=== PATIENT | female | born 1955 | race Two or more races ===

== ENCOUNTER 2018-04-01 17:07 | Emergency (ER) | payer MEDICAID ==
--- NOTE | 2018-04-01 17:39 | ER Document Report ---
ED Medical Screen (RME) - General Chief Complaint: Back Pain Stated Complaint: BACK PAIN, FLANK PAIN Time Seen by Provider: 04/01/18 17:27 Mode of Arrival: Ambulatory Information source: Patient Notes: Patient presents complaining of bilateral flank pain for the past 3 days. Patient complains of right upper thoracic back pain for the past 2 months. Patient states that the thoracic back pain started to radiate around to the right side of the chest yesterday. Patient complains of cough for the past 3 days. Patient also reports some exertional shortness of breath. Patient denies any fever or urinary symptoms. Patient denies any nausea vomiting or diarrhea. Patient reports history of asthma, kidney stones, hypertension and diabetes I have greeted and performed a rapid initial assessment of this patient. A comprehensive ED assessment and evaluation of the patient, analysis of test results and completion of the medical decision making process will be conducted by additional ED providers. TRAVEL OUTSIDE OF THE [place] IN LAST 30 DAYS: No - Related Data Allergies/Adverse Reactions: ibuprofen Allergy (Verified 01/25/16 16:16) Penicillins Allergy (Verified 01/25/16 16:16) Past Medical History Pulmonary Medical History: Reports: Hx Asthma Endocrine Medical History: Reports: Hx Diabetes Mellitus Type 2 GI Medical History: Reports: Hx Gastroesophageal Reflux Disease Musculoskeltal Medical History: Reports Hx Arthritis - Chronic back pain Psychiatric Medical History: Reports: Hx Anxiety Past Surgical History: Reports: Hx Cholecystectomy, Hx Gynecologic Surgery - Ovarian cyst, Hx Herniorrhaphy, Hx Hysterectomy Physical Exam - Vital signs Vitals: Temp Pulse Resp BP Pulse Ox 98.4 F 97 16 126/70 H 94 04/01/18 17:19 04/01/18 17:19 04/01/18 17:19 04/01/18 17:19 04/01/18 17:19 - Back Back: Tender - Right thoracic back tenderness, CVA tenderness - Bilateral Course - Vital Signs Vital signs: Temp Pulse Resp BP Pulse Ox 98.4 F 97 16 126/70 H 94 04/01/18 17:19 04/01/18 17:19 04/01/18 17:19 04/01/18 17:19 04/01/18 17:19
--- NOTE | 2018-04-01 18:01 | RADIOLOGY REPORT (SQ) ---
EXAM DESCRIPTION: CHEST 2 VIEWS COMPLETED DATE/TIME: 04/01/2018 5:53 pm REASON FOR STUDY: cough, r side cp COMPARISON: 01/25/2016 EXAM PARAMETERS: NUMBER OF VIEWS: two views TECHNIQUE: Digital Frontal and Lateral radiographic views of the chest acquired. RADIATION DOSE: NA LIMITATIONS: none FINDINGS: LUNGS AND PLEURA: No opacities, masses or pneumothorax. No pleural effusion. MEDIASTINUM AND HILAR STRUCTURES: No masses or contour abnormalities. HEART AND VASCULAR STRUCTURES: Heart normal size. No evidence for failure. BONES: No acute findings. HARDWARE: None in the chest. OTHER: No other significant finding. IMPRESSION: NO ACUTE RADIOGRAPHIC FINDING IN THE CHEST. TECHNICAL DOCUMENTATION: JOB ID: [id number] [employer]- All Rights Reserved Reading location - IP/workstation name: [email or web address]
--- NOTE | 2018-04-01 18:24 | RADIOLOGY REPORT (SQ) ---
EXAM DESCRIPTION: U/S ABDOMEN LIMITED W/O DOP COMPLETED DATE/TIME: 04/01/2018 6:14 pm REASON FOR STUDY: flank, r chest pain COMPARISON: None. TECHNIQUE: Dynamic and static grayscale images acquired of the abdomen and recorded on PACS. Additio nal selected color Doppler and spectral images recorded. LIMITATIONS: Body habitus. FINDINGS: PANCREAS: Not seen. LIVER: Hepatomegaly. Increased echogenicity. LIVER VASCULATURE: Normal directional flow of the main portal vein and hepatic veins. GALLBLADDER: Surgically absent. ULTRASOUND-DETECTED TOLBERT'S SIGN: Not applicable. INTRAHEPATIC DUCTS AND COMMON DUCT: CBD and intrahepatic ducts normal caliber. No filling defects. INFERIOR VENA CAVA: Not well seen. AORTA: Not well seen. RIGHT KIDNEY: Normal size, 8.8 cm. Normal echogenicity. No solid or suspicious masses. No hydronephr osis. No calcifications. PERITONEAL AND RIGHT PLEURAL SPACE: No ascites or effusions. OTHER: No other significant findings. IMPRESSION: Hepatomegaly with fatty infiltration of the liver. Limited study. TECHNICAL DOCUMENTATION: JOB ID: [id number] [employer]- All Rights Reserved Reading location - IP/workstation name: [email or web address]
--- NOTE | 2018-04-01 18:24 | ER Document Report ---
ED GI/ - General Chief Complaint: Back Pain Stated Complaint: BACK PAIN, FLANK PAIN Time Seen by Provider: 04/01/18 17:27 Mode of Arrival: Ambulatory Information source: Patient Notes: 62-year-old morbidly obese female presents to ED for complaint of bilateral flank pain low back pain and abdominal pain. She states that the thoracic pain and back pain has been for 2 months but the bilateral flank pain and abdominal pains been for 3-4 days. Patient is alert and oriented respirations regular and unlabored speaking in full sentences. She was seen by Tomer Puente [employer] RE[employer] and a chest x-ray is already been done which is negative. TRAVEL OUTSIDE OF THE [place] IN LAST 30 DAYS: No - HPI Patient complains to provider of: Abdominal pain, Flank pain, Other - back Onset: Other - Back pain for 2 months abdominal pain for 3-4 days Timing/Duration: Gradual, Worse Quality of pain: Cramping, Pressure, Sharp Severity at maximum: Severe Severity in ED: Severe Pain Level: 5 Location: LUQ, LLQ, RUQ, RLQ, Left flank, Right flank Vaginal bleeding (Compared to normal period): None Associated symptoms: Radiates to back, Radiates to shoulder Exacerbated by: Movement, Walking Relieved by: Denies Similar symptoms previously: Yes Recently seen / treated by doctor: No - Related Data Allergies/Adverse Reactions: ibuprofen Allergy (Verified 01/25/16 16:16) Penicillins Allergy (Verified 01/25/16 16:16) Past Medical History - General Information source: Patient - Social History Smoking Status: Never Smoker Cigarette use (# per day): No Chew tobacco use (# tins/day): No Smoking Education Provided: No Frequency of alcohol use: None Drug Abuse: None Lives with: Family Family History: Reviewed & Not Pertinent Patient has suicidal ideation: No Patient has homicidal ideation: No - Past Medical History Cardiac Medical History: Reports: None Pulmonary Medical History: Reports: Hx Asthma EENT Medical History: Reports: None Neurological Medical History: Reports: None Endocrine Medical History: Reports: Hx Diabetes Mellitus Type 2 Renal/ Medical History: Reports: None Malignancy Medical History: Reports: None GI Medical History: Reports: Hx Gastroesophageal Reflux Disease Musculoskeletal Medical History: Reports Hx Arthritis - Chronic back pain Skin Medical History: Reports None Psychiatric Medical History: Reports: Hx Anxiety Traumatic Medical History: Reports: None Infectious Medical History: Reports: None Past Surgical History: Reports: Hx Cholecystectomy, Hx Gynecologic Surgery - Ovarian cyst, Hx Herniorrhaphy, Hx Hysterectomy - Immunizations Immunizations up to date: Yes Hx Diphtheria, Pertussis, Tetanus Vaccination: Yes Review of Systems - Review of Systems Constitutional: No symptoms reported EENT: No symptoms reported Cardiovascular: No symptoms reported Respiratory: No symptoms reported Gastrointestinal: Abdominal pain Genitourinary: Flank pain Female Genitourinary: No symptoms reported Musculoskeletal: No symptoms reported Skin: No symptoms reported Hematologic/Lymphatic: No symptoms reported Neurological/Psychological: No symptoms reported Physical Exam - Vital signs Vitals: Temp Pulse Resp BP Pulse Ox 98.4 F 97 16 126/70 H 94 04/01/18 17:19 04/01/18 17:19 04/01/18 17:19 04/01/18 17:19 04/01/18 17:19 Interpretation: Normal - General General appearance: Appears well, Alert - HEENT Head: Normocephalic, Atraumatic Eyes: Normal Pupils: PERRL - Respiratory Respiratory status: No respiratory distress Chest status: Nontender Breath sounds: Normal Chest palpation: Normal - Cardiovascular Rhythm: Regular Heart sounds: Normal auscultation Murmur: No - Abdominal Inspection: Healed incision, Morbidly Obese, Other - Hysterectomy scar, cholecystectomy scar and morbidly obese Distension: No distension Bowel sounds: Normal Tenderness: Tender Organomegaly: No organomegaly - Back Back: Normal, Nontender - Extremities General upper extremity: Normal inspection, Nontender, Normal color, Normal ROM , Normal temperature General lower extremity: Normal inspection, Nontender, Normal color, Normal ROM , Normal temperature, Normal weight bearing. No: John's sign - Neurological Neuro grossly intact: Yes Cognition: Normal Orientation: AAOx4 Yanci Coma Scale Eye Opening: Spontaneous Yanci Coma Scale Verbal: Oriented Yanci Coma Scale Motor: Obeys Commands Lincoln Coma Scale Total: 15 Speech: Normal Motor strength normal: LUE, RUE, LLE, RLE Sensory: Normal - Psychological Associated symptoms: Normal affect, Normal mood - Skin Skin Temperature: Warm Skin Moisture: Dry Skin Color: Normal Course - Re-evaluation Re-evalutation: 04/02/18 01:38 Patient was discussed multiple times with . He stated patient would need Cipro and Flagyl IV before discharge and a prescription for Cipro and Flagyl when she was discharged. He also wrote medications for her constipation. He stated as long as the CT of the abdomen pelvis did not show anything acute besides the constipation to discharge the patient home with instructions to follow-up with her primary doctor and gastroenterology. The CT showed constipation as expected patient was discharged home with prescriptions for Flagyl and Cipro after her IV antibiotics were completed. She was instructed to follow-up as requested and patient was discharged home - Vital Signs Vital signs: Temp Pulse Resp BP Pulse Ox 98.4 F 97 16 126/70 H 94 04/01/18 17:19 04/01/18 17:19 04/01/18 17:19 04/01/18 17:19 04/01/18 17:19 - Laboratory Result Diagrams: 04/01/18 18:49 04/01/18 18:49 Laboratory results interpreted by me: 04/01/18 04/01/18 18:49 21:09 BUN 25 H Glucose 116 H Ur Leukocyte Esterase TRACE H - Diagnostic Test Radiology reviewed: Image reviewed, Reports reviewed Discharge - Discharge Clinical Impression: Chronic back pain greater than 3 months duration Abdominal pain Qualifiers: Abdominal location: generalized Qualified Code(s): R10.84 - Generalized abdominal pain Constipation Qualifiers: Constipation type: unspecified constipation type Qualified Code(s): K59.00 - Constipation, unspecified Condition: Stable Disposition: HOME, SELF-CARE Additional Instructions: ABDOMINAL PAIN: There are many causes of abdominal pain. Pain can mean a serious problem requiring surgery (such as appendicitis). It can also be an innocent problem that goes away on its own (such as a viral infection). Often, time must pass to determine the cause of pain. The physician does not feel that hospitalization is necessary, at present. Things may change within the next 24 hours. Call the doctor or come back for re- examination if any problems occur, such as: (1) Pain that becomes more severe, steady, or becomes concentrated in one specific area. Also, pain that is more severe with movement or coughing. (2) Vomiting that persists or becomes more frequent. (3) Blood in the vomitus, urine, or bowel movements. Blood in the stool may have a tarry or black appearance. (4) Shaking chills or fever greater than 100 degrees F. (5) The abdomen becomes more distended or swollen. (6) Bowel movements cease. (7) Failure to improve as expected. Chronic Pain Control Stress, inactivity, and depression make pain more severe regardless of the cause of the pain. Stress and poor physical condition can cause pain such as headaches and backache. Relaxation: Rest in a quiet place with your eyes closed for 20 minutes twice daily. Concentrate on a pleasant image, or simply "feel" your breathing. Clear your mind. Stress management: Deal with your "stressors." Either take action, or eliminate the stressor from your life. Don't let things hang over you. Accept those things you can't change. Nutrition: Eat small, balanced meals -- don't skip, don't overeat. Meals should be high-carbohydrate, low-sugar, low-fat. Exercise: Exercise helps painful conditions and eases stress. Get 30 minutes of moderate exercise, five days a week. Do an activity that does not flare your pain. Precautions: Pain which continues to disrupt daily activities, or which changes in nature, requires a medical evaluation. Pain Clinic referral is available. We do not manage chronic pain in the Emergency Department. We will try to appropriately help you through an acute flare of your chronic painful condition , but for on-going chronic pain that does not improve, you will need to see your private doctor or painter tumbling barrel. We do not provide repeated medication management of chronic painful conditions. If you wish, we can provide the name of local pain management physicians. Labs x-ray, ultrasound, and CAT scan were discussed with you and a written report of all test given to you to take to your primary care doctor for follow- up. You need to talk to your primary care doctor about some medication to prevent constipation while you are taking oral narcotics. CONSTIPATION: Constipation is a common problem. It is especially likely as you get older. Constipation is a common cause of abdominal pain, but sometimes causes no symptoms at all. Causes of constipation include certain medications, dehydration, diets, inactivity, and low-fiber intake. Rarely, it can be a symptom of underlying disease. The physician has evaluated you for this. Avoid constipation by eating a diet high in fiber, fruits, and vegetables. Drink plenty of liquids. Get regular exercise. If possible, avoid constipating medicines like narcotic pain medication. Some vitamin tablets can cause constipation. Stool softeners may be needed for difficult cases. An excellent stool softener is Konsyl which is available at [employer], and [employer] drug [employer]. Just add a teaspoon to a glass of pineapple or orange juice daily or twice a day if needed. Laxatives are useful for occasional constipation. You should use them only when necessary. Too-frequent use can make your bowels dependent on them. Some over the counter laxatives available without prescription are: Milk of Magnesia, 1-2 tablespoons twice a day Dulcolax, 5 mg pill or 10 mg suppository. Citrate of Magnesia, 4-5 ounces a day for a day or two For acute constipation, Fleet's Enemas and Dulcolax suppositories are helpful. Chronic, custodial use of laxatives or enemas is not a good idea. Your bowel may become dependant on them. You do not need to have a bowel movement every day. Many people do fine with a bowel movement every three or four days. You should call your doctor or return for re-evaluation if you pass blood in the stool, or if you develop fever or increasing abdominal pain. BULK LAXATIVES: Bulk laxatives make the stool softer and bulkier. They're useful for preventing constipation. You can choose between psyllium, methylcellulose, and polycarbophil. They are available without a prescription. Psyllium brand names include Konsyl, Metamucil, Perdiem, Effer-Syllium and Hydrocil. It's available as powder, flavored drink powder, or chewable. The usual dose of psyllium powder is one heaping teaspoon in water each morning, increasing to twice a day if needed. Ashley juice can disguise the slightly grainy texture. Methylcellulose is marketed as Citrucel and other brands. The average dose is two grams in a cup of water one to three times a day. Polycarbophil is marketed as Fiber-Con. Take two tablets with a cup of water one to three times a day. LAXATIVE: A laxative agent has been prescribed for your condition. This should result in passage of stool within 12 hours. Some mild intestinal cramping is common as the hard stool begins to move. You may have loose or runny stools for a short time. Contact your doctor if there is severe cramping, vomiting, or passage of blood. Return for further care if this medicine fails to improve your condition. FOLLOW-UP CARE: If you have been referred to a physician for follow-up care, call the physician s office for an appointment as you were instructed or within the next two days. If you experience worsening or a significant change in your symptoms, notify the physician immediately or return to the Emergency Department at any time for re-evaluation. Forms: Elevated Blood Pressure
[2018-04-01] MEDS ORDERED: NORMAL SALINE 1000 ML 1,000 ML IV ONE (18:45)
[2018-04-01 19:01] LABS: ABSOLUTE BASOPHILS # (AUTO) 0.1 10^3/uL (0.0-0.2); ABSOLUTE EOSINOPHILS # (AUTO) 0.1 10^3/uL (0.0-0.6); ABSOLUTE LYMPHOCYTES (AUTO) 2.2 10^3/uL (0.5-4.7); ABSOLUTE MONOCYTES (AUTO) 0.5 10^3/uL (0.1-1.4); ABSOLUTE NEUT (AUTO) 2.7 10^3/uL (1.7-8.2); BASOPHILS % (AUTO) 1.1 % (0-2); EOSINOPHILS % (AUTO) 2.4 % (0-6); HEMATOCRIT 39.4 % (36.0-47.0); HEMOGLOBIN 13.4 g/dL (12.0-15.5); LYMPHOCYTES % (AUTO) 39.1 % (13-45); MEAN CORPUSCULAR HEMOGLOBIN 31.2 pg (27.0-33.4); MEAN CORPUSCULAR HGB CONC 34.2 g/dL (32.0-36.0); MEAN CORPUSCULAR VOLUME 91 fl (80-97); MONOCYTES % (AUTO) 8.1 % (3-13); PLATELET COUNT 221 10^3/uL (150-450); RED BLOOD COUNT 4.31 10^6/uL (3.72-5.28); RED CELL DISTRIBUTION WIDTH 13.6 % (11.5-14.0); SEGMENTED NEUTROPHILS % (AUTO) 49.3 % (42-78); TOTAL CELLS COUNTED % (AUTO) 100 %; WHITE BLOOD COUNT 5.6 10^3/uL (4.0-10.5)
[2018-04-01 19:17] LABS: ALANINE AMINOTRANSFERASE 17 U/L (9-52); ALBUMIN 3.8 g/dL (3.5-5.0); ALKALINE PHOSPHATASE 77 U/L (38-126); ANION GAP 10 (5-19); ASPARTATE AMINO TRANSFERASE 21 U/L (14-36); BILIRUBIN,DIRECT 0.2 mg/dL (0.0-0.4); BILIRUBIN,TOTAL 0.5 mg/dL (0.2-1.3); BLOOD UREA NITROGEN 25 mg/dL (7-20); CALCIUM 9.1 mg/dL (8.4-10.2); CARBON DIOXIDE 30 mmol/L (22-30); CHLORIDE 104 mmol/L (98-107); GLUCOSE 116 mg/dL (75-110); LIPASE 151.9 U/L (23-300); POTASSIUM 4.5 mmol/L (3.6-5.0); SODIUM 143.7 mmol/L (137-145); TOTAL PROTEIN 6.6 g/dL (6.3-8.2)
--- NOTE | 2018-04-01 19:19 | EKG REPORT ---
SEVERITY:- ABNORMAL ECG - SINUS RHYTHM LEFT VENTRICULAR HYPERTROPHY : Confirmed by: Alisha Fernandez MD 01-Apr-2018 19:17:27
[2018-04-01 21:22] LABS: APPEARANCE,URINE CLEAR; BILIRUBIN,URINE NEGATIVE (NEGATIVE); COLOR,URINE YELLOW; GLUCOSE, URINE NEGATIVE (NEGATIVE); KETONES,URINE NEGATIVE (NEGATIVE); LEUKOCYTE ESTERASE,URINE TRACE (NEGATIVE); NITRITE,URINE NEGATIVE (NEGATIVE); PROTEIN,URINE NEGATIVE (NEGATIVE); URINE SPECIFIC GRAVITY 1.023; UROBILINOGEN,URINE NEGATIVE mg/dL (<2.0)
--- NOTE | 2018-04-01 22:10 | RADIOLOGY REPORT (SQ) ---
EXAM DESCRIPTION: CT ABDOMEN PELVIS WITH IV CONTRAST COMPLETED DATE/TME: 04/01/2018 00:00 CLINICAL HISTORY: 62 years, Female, Abdominal pain for the last 3 days COMPARISON: Ultrasound from today's date TECHNIQUE: 690 Images stored on PACS. All CT scanners at this facility use dose modulation, iterative reconstruction, and/or weight based dosing when appropriate to reduce radiation dose to as low as reasonably achievable (ALARA). [facility]: Dose Right [facility]: CareDose [facility]: Dose Right [facility]: Teradose 4D [facility]: [employer] LIMITATIONS: None. FINDINGS: Limited evaluation of the lung bases is unremarkable. Osseous structures are grossly intact. Diffuse fatty infiltrative change to the liver. The spleen, adrenal glands, pancreas, kidneys are unremarkable. Surgical absence of the gallbladder. No evidence for bowel obstruction. Normal appendix. A small amount of air in the vaginal cuff. Abundant stool in the colon. No free air or free fluid. IMPRESSION: Abundant stool in the colon. Negative for acute intra-abdominal/pelvic process. Fatty infiltrative change to the liver. TECHNICAL DOCUMENTATION: Quality ID # [id number]: Final reports with documentation of one or more dose reduction techniques (e.g., Automated exposure control, adjustment of the mA and/or kV according to patient size, use of iterative reconstruction technique) 2010 [employer]- All Rights Reserved
[2018-04-01] MEDS ORDERED: LACTULOSE SYRUP 20 GM/30 ML UDCUP PO ONE (22:42)
[2018-04-02 02:04] VITALS: BP 106/66
== END 2018-04-01 23:20 | disposition home or self-care (01) ==
LOC: ER 17:07
DX: K59.03 Drug induced constipation (principal); T40.605A Adverse effect of unspecified narcotics, initial encounter; R10.84 Generalized abdominal pain; M54.6 Pain in thoracic spine; G89.29 Other chronic pain; J45.909 Unspecified asthma, uncomplicated; E11.9 Type 2 diabetes mellitus without complications; Z88.6 Allergy status to analgesic agent; Z88.0 Allergy status to penicillin
CPT/HCPCS: 93005; 99284; 96360; 96361; 36415; 83690; 85025; 80053; 81001; 84484; 71046; 76705; 74177; 93010; J7030

== ENCOUNTER 2018-09-15 15:03 | Emergency (ER) | payer MEDICAID ==
[2018-09-15 15:22] VITALS: BP 140/67
--- NOTE | 2018-09-15 15:56 | ER Document Report ---
ED Medical Screen (RME) - General Chief Complaint: Cough Stated Complaint: BACK PAIN/COUGH Time Seen by Provider: 09/15/18 15:49 Mode of Arrival: Ambulatory Information source: Patient TRAVEL OUTSIDE OF THE [place] IN LAST 30 DAYS: No - HPI Patient complains to provider of: laurel sharif Notes: 09/15/18 15:55 Patient is here with multiple complaints. She has had chronic knee pain for the last several months. She also complains of some back pain for the last several months. The last few weeks been coughing and she is now having some chest pain. Exam No distress, nontoxic appearing. Lungs are clear and equal throughout. Heart sounds are normal. Plan CBC, CMP, troponin, EKG, chest x-ray. An initial examination was made on the patient as part of the triage process, and it was determined a more comprehensive evaluation was necessary. Initial labs were ordered and patient was transferred to another provider in the ED who assumed care and finished evaluation and plan. - Related Data Allergies/Adverse Reactions: ibuprofen Allergy (Verified 09/15/18 15:39) morphine Allergy (Verified 09/15/18 15:39) Penicillins Allergy (Verified 09/15/18 15:39) Past Medical History - Social History Frequency of alcohol use: None Drug Abuse: None Pulmonary Medical History: Reports: Hx Asthma Endocrine Medical History: Reports: Hx Diabetes Mellitus Type 2 Renal/ Medical History: Denies: Hx Peritoneal Dialysis GI Medical History: Reports: Hx Gastroesophageal Reflux Disease Musculoskeltal Medical History: Reports Hx Arthritis - Chronic back pain Psychiatric Medical History: Reports: Hx Anxiety Past Surgical History: Reports: Hx Cholecystectomy, Hx Gynecologic Surgery - Ovarian cyst, Hx Herniorrhaphy, Hx Hysterectomy - Immunizations Immunizations up to date: Yes Hx Diphtheria, Pertussis, Tetanus Vaccination: Yes Physical Exam - Vital signs Vitals: Temp Pulse Resp BP Pulse Ox 98.3 F 88 18 140/67 H 96 09/15/18 15:19 09/15/18 15:09/15/18 15:09/15/18 15:09/15/18 15:19 Course - Vital Signs Vital signs: Temp Pulse Resp BP Pulse Ox 98.3 F 88 18 140/67 H 96 09/15/18 15:09/15/18 15:09/15/18 15:09/15/18 15:09/15/18 15:19
--- NOTE | 2018-09-15 16:21 | RADIOLOGY REPORT (SQ) ---
EXAM DESCRIPTION: CHEST 2 VIEWS COMPLETED DATE/TIME: 09/15/2018 4:12 pm REASON FOR STUDY: cp COMPARISON: 04/01/2018. EXAM PARAMETERS: NUMBER OF VIEWS: two views TECHNIQUE: Digital Frontal and Lateral radiographic views of the chest acquired. RADIATION DOSE: NA LIMITATIONS: none FINDINGS: LUNGS AND PLEURA: No opacities, masses or pneumothorax. No pleural effusion. MEDIASTINUM AND HILAR STRUCTURES: No masses or contour abnormalities. HEART AND VASCULAR STRUCTURES: Heart normal size. No evidence for failure. BONES: No acute findings. Degenerative changes in the spine. HARDWARE: None in the chest. OTHER: No other significant finding. IMPRESSION: NO ACUTE RADIOGRAPHIC FINDING IN THE CHEST. TECHNICAL DOCUMENTATION: JOB ID: [id number] [employer]- All Rights Reserved Reading location - IP/workstation name: [email or web address]
[2018-09-15 16:47] LABS: ABSOLUTE EOSINOPHILS # (AUTO) 0.1 10^3/uL (0.0-0.6); ABSOLUTE LYMPHOCYTES (AUTO) 1.5 10^3/uL (0.5-4.7); ABSOLUTE MONOCYTES (AUTO) 0.5 10^3/uL (0.1-1.4); ABSOLUTE NEUT (AUTO) 3.2 10^3/uL (1.7-8.2); BASOPHILS % (AUTO) 0.4 % (0-2); EOSINOPHILS % (AUTO) 2.2 % (0-6); HEMATOCRIT 39.1 % (36.0-47.0); LYMPHOCYTES % (AUTO) 28.3 % (13-45); MEAN CORPUSCULAR HEMOGLOBIN 30.6 pg (27.0-33.4); MEAN CORPUSCULAR HGB CONC 33.4 g/dL (32.0-36.0); MEAN CORPUSCULAR VOLUME 92 fl (80-97); MONOCYTES % (AUTO) 9.8 % (3-13); PLATELET COUNT 186 10^3/uL (150-450); RED BLOOD COUNT 4.26 10^6/uL (3.72-5.28); RED CELL DISTRIBUTION WIDTH 14.3 % (11.5-14.0); SEGMENTED NEUTROPHILS % (AUTO) 59.3 % (42-78); TOTAL CELLS COUNTED % (AUTO) 100 %; WHITE BLOOD COUNT 5.4 10^3/uL (4.0-10.5)
[2018-09-15 17:06] LABS: ALANINE AMINOTRANSFERASE 31 U/L (9-52); ALKALINE PHOSPHATASE 92 U/L (38-126); ANION GAP 8 (5-19); ASPARTATE AMINO TRANSFERASE 22 U/L (14-36); BILIRUBIN,DIRECT 0.2 mg/dL (0.0-0.4); BILIRUBIN,TOTAL 0.3 mg/dL (0.2-1.3); BLOOD UREA NITROGEN 26 mg/dL (7-20); CALCIUM 9.6 mg/dL (8.4-10.2); CARBON DIOXIDE 30 mmol/L (22-30); CHLORIDE 105 mmol/L (98-107); GLUCOSE 107 mg/dL (75-110); POTASSIUM 3.8 mmol/L (3.6-5.0); SODIUM 142.6 mmol/L (137-145)
--- NOTE | 2018-09-15 19:48 | EKG REPORT ---
SEVERITY:- NORMAL ECG - SINUS RHYTHM : Confirmed by: Alisha Fernandez MD 15-Sep-2018 19:47:53
[2018-09-15] MEDS ORDERED: PREDNISONE 20 MG TABLET PO ONE (21:35)
[2018-09-15] MEDS ORDERED: HYDROCODONE/ACETAMINOPHEN 5-325 MG TABLET PO ONE ×2 (21:36→21:41)
[2018-09-15] MEDS ORDERED: IPRATROPIUM/ALBUTEROL 0.5-2.5 MG/3 ML AMPUL NEB ONE (21:36)
--- NOTE | 2018-09-15 21:42 | ER Document Report ---
ED General - General Chief Complaint: Cough Stated Complaint: BACK PAIN/COUGH Time Seen by Provider: 09/15/18 15:49 Mode of Arrival: Ambulatory Information source: Patient TRAVEL OUTSIDE OF THE [place] IN LAST 30 DAYS: No - HPI Patient complains to provider of: Cough, wheezing, chest wall pain, chronic leg pain Onset: Last week Onset/Duration: Persistent Quality of pain: Sharp Severity: Severe Pain Level: 5 Associated symptoms: Nonproductive cough. denies: Chills, Diarrhea, Fever, Nausea, Vomiting Exacerbated by: Denies Relieved by: Denies Similar symptoms previously: No Recently seen / treated by doctor: No Notes: 63-year-old female coming in today with about a week of bad cough, wheezing, rattling her chest and chest wall pain secondary to cough. She is afebrile. No nausea vomiting or diarrhea. Also complaining of her chronic pain syndrome in her low back and her right knee. She does not have any swelling present in her lower extremity. - Related Data Allergies/Adverse Reactions: ibuprofen Allergy (Verified 09/15/18 15:39) morphine Allergy (Verified 09/15/18 15:39) Penicillins Allergy (Verified 09/15/18 15:39) Past Medical History - General Information source: Patient - Social History Smoking Status: Never Smoker Frequency of alcohol use: None Drug Abuse: None Family History: Reviewed & Not Pertinent Patient has suicidal ideation: No Patient has homicidal ideation: No Pulmonary Medical History: Reports: Hx Asthma Endocrine Medical History: Reports: Hx Diabetes Mellitus Type 2 Renal/ Medical History: Denies: Hx Peritoneal Dialysis GI Medical History: Reports: Hx Gastroesophageal Reflux Disease Musculoskeletal Medical History: Reports Hx Arthritis - Chronic back pain Psychiatric Medical History: Reports: Hx Anxiety Past Surgical History: Reports: Hx Cholecystectomy, Hx Gynecologic Surgery - Ovarian cyst, Hx Herniorrhaphy, Hx Hysterectomy - Immunizations Immunizations up to date: Yes Hx Diphtheria, Pertussis, Tetanus Vaccination: Yes Review of Systems - Review of Systems Notes: Constitutional: No fevers. No chills. EENT: No eye redness. No eye pain. No ear pain. No sore throat. Cardiovascular: Positive for chest wall pain. No palpitations. Respiratory: Positive for cough. Positive for shortness of breath. No respiratory distress. Gastrointestinal: No abdominal pain. No nausea, vomiting, or diarrhea. Genitourinary: Atraumatic. No lesions. No pain. No discharge. Musculoskeletal: Positive for right knee pain Skin: No rash or lesions. Lymphatic: No swollen lymph nodes. Neurologic: No headache. No syncope. Psychiatric: No suicidal or homicidal ideation. Physical Exam - Vital signs Vitals: Temp Pulse Resp BP Pulse Ox 98.3 F 88 18 140/67 H 96 09/15/18 15:19 09/15/18 15:19 09/15/18 15:19 09/15/18 15:19 09/15/18 15:19 - Notes Notes: General: Well-developed, well-nourished. In no acute distress. Non-toxic appearing. Cardiac: Well-perfused. Regular rate and rhythm. No murmurs, rubs, or gallops. Pulmonary: Diminished breath sounds bilaterally. End expiratory repeat wheezes bilaterally. No respiratory distress or retractions Abdominal: Non-distended. Non-rigid. Bowels sounds are present in all four quadrants. No guarding or rebound. HEENT: Head is atraumatic. Conjunctivae not reddened. No tearing. PERRL. EOMI. Orbits atraumatic. No periorbital swelling or erythema. Oropharynx is without erythema, swelling, or exudates. Neck: Supple. No adenopathy. No meningismus. Dermatologic: Warm with good turgor. No rash. Atraumatic. Chest: Atraumatic. No chest wall tenderness to palpation. Musculoskeletal: Moves all extremities well. No range of motion deficits. no muscular or joint tenderness. No paraspinal muscle tenderness. no midline spinal tenderness or step-off. Right knee with evidence of arthroplasty surgery in the past. No erythema. No swelling. Normal range of motion. No crepitus. Distal neurovascular exam is intact Genitourinary: Examination deferred Neurologic: No gross neurologic deficits. Psychiatric: Normal mood. Course - Re-evaluation Re-evalutation: 09/15/18 21:41 Patient probably has asthma exacerbation of bronchitis. We will give some steroids here. 3 DuoNeb treatments ordered. We will also order some pain medicine for patient's chronic back and leg pain. 09/15/18 22:11 Better after neb. We will start her on some prednisone, Z-Anton, [place], pro-air - Vital Signs Vital signs: Temp Pulse Resp BP Pulse Ox 98.3 F 88 18 140/67 H 96 09/15/18 15:19 09/15/18 15:19 09/15/18 15:19 09/15/18 15:19 09/15/18 15:19 - Laboratory Result Diagrams: 09/15/18 16:28 09/15/18 16:28 Laboratory results interpreted by me: 09/15/18 09/15/18 16:28 16:28 RDW 14.3 H BUN 26 H Est GFR ( Amer) 58 L Est GFR (Non-Af Amer) 48 L Discharge - Discharge Clinical Impression: Bronchospasm Upper respiratory infection Qualifiers: URI type: unspecified URI Qualified Code(s): J06.9 - Acute upper respiratory infection, unspecified Chronic pain Qualifiers: Chronic pain type: other chronic pain Qualified Code(s): G89.29 - Other chronic pain Condition: Good Disposition: HOME, SELF-CARE Instructions: Upper Respiratory Illness ([facility]), Bronchitis With Bronchospasm (Wheezing) ([facility]) Additional Instructions: Please take the medications provided for your symptoms. Please follow-up with the [facility]. Prescriptions: Hydrocodone/Acetaminophen [[place] 5-325 mg Tablet] 1 tab PO Q6HP PRN #10 tablet PRN Reason: Albuterol Sulfate [Proair HFA Inhalation Aerosol 8.5 gm MDI] 2 puff IH Q4H PRN #1 mdi PRN Reason: Azithromycin [Zithromax 250 mg Tablet] 250 mg PO ASDIR PRN #6 tablet PRN Reason: Prednisone [Deltasone 20 mg Tablet] 3 tab PO DAILY 5 Days #15 tablet Referrals: [facility] [Provider Group] - Follow up as needed
== END 2018-09-15 22:33 | disposition home or self-care (01) ==
LOC: ER 15:03
DX: J06.9 Acute upper respiratory infection, unspecified (principal); J45.909 Unspecified asthma, uncomplicated; R05 Cough; R07.89 Other chest pain; M54.5 Low back pain; M25.561 Pain in right knee; G89.29 Other chronic pain; Z88.6 Allergy status to analgesic agent; Z88.5 Allergy status to narcotic agent; Z88.0 Allergy status to penicillin
CPT/HCPCS: 93005; 94640; 99284; 36415; 85025; 80053; 84484; 71046; 93010; J7512; J7620

== ENCOUNTER 2019-07-13 12:13 | Emergency (ER) | payer MEDICAID ==
[2019-07-13] MEDS ORDERED: ONDANSETRON 4 MG TAB.RAPDIS PO ONE (13:36)
--- NOTE | 2019-07-13 13:39 | ER Document Report ---
ED Medical Screen (RME) - General Chief Complaint: Chest Pain Stated Complaint: CHEST PAIN Time Seen by Provider: 07/13/19 13:32 Mode of Arrival: Ambulatory Information source: Patient Notes: Patient presents complaining of left-sided chest pain that started last night with left arm pain. Patient states pain goes into the left lateral side as well. Patient reports nausea but denies any vomiting. Patient has had mild cough with some shortness of breath. Patient also complains of headache pain. Patient is allergic to ibuprofen and unable to take aspirin. I have greeted and performed a rapid initial assessment of this patient. A comprehensive ED assessment and evaluation of the patient, analysis of test results and completion of the medical decision making process will be conducted by additional ED providers. TRAVEL OUTSIDE OF THE [place] IN LAST 30 DAYS: No - Related Data Allergies/Adverse Reactions: ibuprofen Allergy (Verified 07/13/19 13:33) morphine Allergy (Verified 07/13/19 13:33) Penicillins Allergy (Verified 07/13/19 13:33) Past Medical History Pulmonary Medical History: Reports: Hx Asthma Endocrine Medical History: Reports: Hx Diabetes Mellitus Type 2 Renal/ Medical History: Denies: Hx Peritoneal Dialysis GI Medical History: Reports: Hx Gastroesophageal Reflux Disease Musculoskeltal Medical History: Reports Hx Arthritis - Chronic back pain Psychiatric Medical History: Reports: Hx Anxiety Past Surgical History: Reports: Hx Cholecystectomy, Hx Gynecologic Surgery - Ovarian cyst, Hx Herniorrhaphy, Hx Hysterectomy - Immunizations Immunizations up to date: Yes Hx Diphtheria, Pertussis, Tetanus Vaccination: Yes Physical Exam - Vital signs Vitals: Temp Pulse Resp BP Pulse Ox 97.9 F 74 16 152/84 H 96 07/13/19 13:22 07/13/19 13:22 07/13/19 13:22 07/13/19 13:22 07/13/19 13:22 - Respiratory Respiratory status: No respiratory distress Chest status: Tender - Cardiovascular Rhythm: Regular Heart sounds: S1 appreciated, S2 appreciated Murmur: No Course - Vital Signs Vital signs: Temp Pulse Resp BP Pulse Ox 97.9 F 74 16 152/84 H 96 07/13/19 13:22 07/13/19 13:22 07/13/19 13:22 07/13/19 13:22 07/13/19 13:22
[2019-07-13 14:44] LABS: ABSOLUTE BASOPHILS # (AUTO) 0.1 10^3/uL (0.0-0.2); ABSOLUTE EOSINOPHILS # (AUTO) 0.2 10^3/uL (0.0-0.6); ABSOLUTE MONOCYTES (AUTO) 0.4 10^3/uL (0.1-1.4); ABSOLUTE NEUT (AUTO) 2.1 10^3/uL (1.7-8.2); BASOPHILS % (AUTO) 1.1 % (0-2); EOSINOPHILS % (AUTO) 3.5 % (0-6); HEMATOCRIT 40.9 % (36.0-47.0); MEAN CORPUSCULAR HEMOGLOBIN 31.2 pg (27.0-33.4); MEAN CORPUSCULAR HGB CONC 34.1 g/dL (32.0-36.0); MEAN CORPUSCULAR VOLUME 91 fl (80-97); MONOCYTES % (AUTO) 8.9 % (3-13); PLATELET COUNT 196 10^3/uL (150-450); RED BLOOD COUNT 4.47 10^6/uL (3.72-5.28); RED CELL DISTRIBUTION WIDTH 13.4 % (11.5-14.0); SEGMENTED NEUTROPHILS % (AUTO) 44.5 % (42-78); TOTAL CELLS COUNTED % (AUTO) 100 %; WHITE BLOOD COUNT 4.7 10^3/uL (4.0-10.5)
[2019-07-13 14:53] LABS: APPEARANCE,URINE CLEAR; BILIRUBIN,URINE NEGATIVE (NEGATIVE); COLOR,URINE STRAW; GLUCOSE, URINE NEGATIVE (NEGATIVE); KETONES,URINE NEGATIVE (NEGATIVE); LEUKOCYTE ESTERASE,URINE NEGATIVE (NEGATIVE); NITRITE,URINE NEGATIVE (NEGATIVE); PROTEIN,URINE NEGATIVE (NEGATIVE); URINE SPECIFIC GRAVITY 1.006; UROBILINOGEN,URINE NEGATIVE mg/dL (<2.0)
--- NOTE | 2019-07-13 15:02 | RADIOLOGY REPORT (SQ) ---
EXAM DESCRIPTION: CHEST 2 VIEWS COMPLETED DATE/TIME: 07/13/2019 2:12 pm REASON FOR STUDY: leigh ann barragan COMPARISON: 09/15/2018 EXAM PARAMETERS: NUMBER OF VIEWS: two views TECHNIQUE: Digital Frontal and Lateral radiographic views of the chest acquired. RADIATION DOSE: NA LIMITATIONS: none FINDINGS: LUNGS AND PLEURA: Chronic mildly prominent interstitial markings in the lungs. No acute pulmonary consolidation. No pneumothorax or pleural effusion. MEDIASTINUM AND HILAR STRUCTURES: No masses or contour abnormalities. HEART AND VASCULAR STRUCTURES: Heart size within the upper limits of normal. No evidence for failure . BONES: No acute findings. HARDWARE: None in the chest. OTHER: No other significant finding. IMPRESSION: 1. No significant interval changes since the previous examination dated 09/15/2018. Chr onic mild changes in the lungs. No acute findings. TECHNICAL DOCUMENTATION: JOB ID: [id number] 2010 [employer] All Rights Reserved Reading location - IP/workstation name: [email or web address]
[2019-07-13 15:05] LABS: ALBUMIN 4.3 g/dL (3.5-5.0); ALKALINE PHOSPHATASE 87 U/L (38-126); ANION GAP 8 (5-19); ASPARTATE AMINO TRANSFERASE 27 U/L (14-36); BILIRUBIN,DIRECT 0.2 mg/dL (0.0-0.4); BILIRUBIN,TOTAL 0.4 mg/dL (0.2-1.3); BLOOD UREA NITROGEN 17 mg/dL (7-20); CALCIUM 9.6 mg/dL (8.4-10.2); CARBON DIOXIDE 32 mmol/L (22-30); CHLORIDE 102 mmol/L (98-107); GLUCOSE 87 mg/dL (75-110); POTASSIUM 4.8 mmol/L (3.6-5.0); TOTAL PROTEIN 7.6 g/dL (6.3-8.2)
[2019-07-13] MEDS ORDERED: HYDROCODONE/ACETAMINOPHEN 5-325 MG TABLET PO ONE (15:30)
--- NOTE | 2019-07-13 15:49 | ER Document Report ---
ED General - General Chief Complaint: Chest Pain Stated Complaint: CHEST PAIN Time Seen by Provider: 07/13/19 13:32 Mode of Arrival: Ambulatory Notes: 64-year-old female with history of hypertension diabetes, and asthma presents for left-sided chest pain that started last night. States it radiates down her left arm and into her head. Patient states two Tylenol relieves the pain. Patient states she has had chest pain like this before. States it is worse with movement of her left arm. Pt states it continued today. Associated nausea. States dyspnea but this has been "going for a long time" due to asthma. Pt sta hilda she recently moved from [place] and had a shortage worker there who was following her due to a murmur. Denies any stent, DE, or CABG history. TRAVEL OUTSIDE OF THE [place] IN LAST 30 DAYS: No - Related Data Allergies/Adverse Reactions: ibuprofen Allergy (Verified 07/13/19 13:33) morphine Allergy (Verified 07/13/19 13:33) Penicillins Allergy (Verified 07/13/19 13:33) Home Medications: klonopin. paroxetine. ranitidine. trulicity. metformin. pramipexole. metformin. glipizide. albuterol. atrovastatin. cyanocobalamin. vitamin d2. synalar. nifedipine. omeprazole. torsemide. fovent. percocet Past Medical History - General Information source: Patient - Social History Smoking Status: Never Smoker Chew tobacco use (# tins/day): No Frequency of alcohol use: None Drug Abuse: None Family History: Reviewed & Not Pertinent Patient has suicidal ideation: No Patient has homicidal ideation: No Pulmonary Medical History: Reports: Hx Asthma Endocrine Medical History: Reports: Hx Diabetes Mellitus Type 2 Renal/ Medical History: Denies: Hx Peritoneal Dialysis GI Medical History: Reports: Hx Gastroesophageal Reflux Disease Musculoskeletal Medical History: Reports Hx Arthritis - Chronic back pain Psychiatric Medical History: Reports: Hx Anxiety Past Surgical History: Reports: Hx Cholecystectomy, Hx Gynecologic Surgery - Ovarian cyst, Hx Herniorrhaphy, Hx Hysterectomy - Immunizations Immunizations up to date: Yes Hx Diphtheria, Pertussis, Tetanus Vaccination: Yes Review of Systems - Review of Systems Notes: Constitutional: Negative for fever. HENT: Negative for sore throat. Eyes: Negative for visual changes. Cardiovascular: Positive for chest pain.. Respiratory: Positive for shortness of breath. Gastrointestinal: Positive for nausea. Negative for abdominal pain, vomiting or diarrhea. Genitourinary: Negative for dysuria. Musculoskeletal: Positive for left arm pain. Negative for back pain. Skin: Negative for rash. Neurological: Negative for headaches, weakness or numbness. 10 point ROS negative except as marked above and in HPI. Physical Exam - Vital signs Vitals: Temp Pulse Resp BP Pulse Ox 97.9 F 74 16 152/84 H 96 07/13/19 13:22 07/13/19 13:22 07/13/19 13:22 07/13/19 13:22 07/13/19 13:22 - Notes Notes: GENERAL: Well-appearing, well-nourished and in no acute distress. HEAD: Atraumatic, normocephalic. EYES: Extraocular movements intact, sclera anicteric, conjunctiva are normal. NECK: Normal range of motion, supple without lymphadenopathy or JVD. LUNGS: Breath sounds clear to auscultation bilaterally and equal. No wheezes rales or rhonchi. HEART: Regular rate and rhythm without murmurs, rubs or gallops. EXTREMITIES: Normal range of motion, no pitting or edema. No clubbing or cyanosis. NEUROLOGICAL: Cranial nerves II through XII grossly intact. Normal speech, normal gait. PSYCH: Normal mood, normal affect. SKIN: Warm, Dry, normal turgor, no rashes or lesions noted. Course - Re-evaluation Re-evalutation: 07/13/19 Presentation of chest pain in an otherwise well appearing patient. Low clinical suspicion for ACS given clinical history, exam, EKG without ST elevations or depressions, and negative initial troponin. HEART score equal to 3. PE also seems unlikely given clinical history, absence of tachycardia or dyspnea. Patient is PERC criteria negative. CXR without evidence of pneumothorax or pneumonia. No widened mediastinum. Aortic dissection also seems unlikely given history, symmetric pulses, CXR, and vitals. HEART Score: 3 Chest pain in a patient without evidence of cardiac or other serious etiology on workup today. I discussed with patient that, based on their age, risk factors and emergency department testing today, the likelihood that their symptoms are related to a heart attack is very low (estimated risk of heart attack or over the next 30 days of less than 1%). The patient demonstrates decision making capacity and has verbalized an understanding of these risks to me. Based on this, the patient has chosen to follow-up as an outpatient. Usual chest pain return precautions reviewed. The patient states understanding and agreement with this plan. - Vital Signs Vital signs: Temp Pulse Resp BP Pulse Ox 97.9 F 74 14 140/91 H 94 07/13/19 13:22 07/13/19 13:22 07/13/19 19:01 07/13/19 19:01 07/13/19 19:01 - Laboratory Result Diagrams: 07/13/19 14:21 07/13/19 14:21 Laboratory results interpreted by me: 07/13/19 14:21 Carbon Dioxide 32 H Discharge - Discharge Clinical Impression: Chest pain Qualifiers: Chest pain type: unspecified Qualified Code(s): R07.9 - Chest pain, unspecified Condition: Stable Disposition: HOME, SELF-CARE Additional Instructions: You were seen today for chest pain. The exact cause of your pain is unclear. However, based on your cardiac enzyme testing, chest x-ray, and EKG it does not appear that it is from an immediately life-threatening cause at this time. Although your testing here is normal is critical that you follow-up with your primary care physician for continued evaluation of this chest pain and possible stress testing. I recommended you see your physician within the next 24-48 hours to be evaluated for consideration of a stress test. Please return to emergency department immediately if you have worsening of your chest pain, shortness of breath, vomiting, become unable to exert yourself due to pain or difficulty breathing, you pass out, or have any pain that radiates into your arms, jaw, or back. Please also return if you have any additional symptoms that are concerning to you. Referrals: GIGI DUNHAM DO [NO LOCAL MD] - Follow up in 3-5 days TRI MINAYA MD [ACTIVE STAFF] - Follow up in 3-5 days [facility] [Provider Group] - Follow up in 3-5 days
--- NOTE | 2019-07-13 17:19 | EKG REPORT ---
SEVERITY:- NORMAL ECG - SINUS RHYTHM : Confirmed by: Cipriano Ren MD 13-Jul-2019 17:18:44
[2019-07-13 19:17] VITALS: BP 140/91
== END 2019-07-13 19:41 | disposition home or self-care (01) ==
LOC: ER 12:13
DX: R07.9 Chest pain, unspecified (principal); R06.02 Shortness of breath; R11.0 Nausea; M79.602 Pain in left arm; I10 Essential (primary) hypertension; E11.9 Type 2 diabetes mellitus without complications; J45.909 Unspecified asthma, uncomplicated; K21.9 Gastro-esophageal reflux disease without esophagitis; M19.90 Unspecified osteoarthritis, unspecified site; Z79.891 Long term (current) use of opiate analgesic; Z79.899 Other long term (current) drug therapy; Z79.84 Long term (current) use of oral hypoglycemic drugs
CPT/HCPCS: 93005; 36415; 83690; 85025; 80053; 81001; 84484; 71046; 93010; S0119; 99285

== ENCOUNTER 2019-08-16 13:57 | Emergency (ER) | payer MEDICAID ==
[2019-08-16 14:27] VITALS: BP 136/69
--- NOTE | 2019-08-16 15:00 | ER Document Report ---
ED Medical Screen (RME) - General Chief Complaint: Flank Pain Stated Complaint: RUNNY NOSE/HEADACHE/NAUSEA/FEVER/CHEST PAIN Time Seen by Provider: 08/16/19 14:52 Primary Care Provider: CAROLYN BARBER FNP [Primary Care Provider] - Follow up as needed Mode of Arrival: Ambulatory Information source: Patient, Relative Notes: 64-year-old female with history of chronic pain and kidney stones presents emergency department with complaints of headache backache sore throat knee pain ear irritation for the past week. She did go see her provider on August 08 who prescribed cephalexin. She reports she still hurting. She reports subjective fever last night. No complaints of vomiting diarrhea. Reports she took Tylenol last week. I have greeted and performed a rapid initial assessment of this patient. A comprehensive ED assessment and evaluation of the patient, analysis of test results and completion of the medical decision making process will be conducted by additional ED providers. TRAVEL OUTSIDE OF THE [place] IN LAST 30 DAYS: No - Related Data Allergies/Adverse Reactions: ibuprofen Allergy (Verified 07/13/19 13:33) morphine Allergy (Verified 07/13/19 13:33) Penicillins Allergy (Verified 07/13/19 13:33) Past Medical History Pulmonary Medical History: Reports: Hx Asthma Endocrine Medical History: Reports: Hx Diabetes Mellitus Type 2 Renal/ Medical History: Denies: Hx Peritoneal Dialysis GI Medical History: Reports: Hx Gastroesophageal Reflux Disease Musculoskeltal Medical History: Reports Hx Arthritis - Chronic back pain Psychiatric Medical History: Reports: Hx Anxiety Past Surgical History: Reports: Hx Cholecystectomy, Hx Gynecologic Surgery - Ovarian cyst, Hx Herniorrhaphy, Hx Hysterectomy - Immunizations Immunizations up to date: Yes Hx Diphtheria, Pertussis, Tetanus Vaccination: Yes Physical Exam - Vital signs Vitals: Temp Pulse Resp BP Pulse Ox 98.6 F 104 H 22 H 136/69 H 94 08/16/19 14:25 08/16/19 14:25 08/16/19 14:25 08/16/19 14:25 08/16/19 14:25 Course - Vital Signs Vital signs: Temp Pulse Resp BP Pulse Ox 98.6 F 104 H 22 H 136/69 H 94 08/16/19 14:25 08/16/19 14:25 08/16/19 14:25 08/16/19 14:25 08/16/19 14:25 Doctor's Discharge - Discharge Referrals: CAROLYN BARBER FNP [Primary Care Provider] - Follow up as needed
[2019-08-16 16:21] LABS: ABSOLUTE EOSINOPHILS # (AUTO) 0.1 10^3/uL (0.0-0.6); ABSOLUTE LYMPHOCYTES (AUTO) 1.5 10^3/uL (0.5-4.7); ABSOLUTE MONOCYTES (AUTO) 0.5 10^3/uL (0.1-1.4); ABSOLUTE NEUT (AUTO) 2.1 10^3/uL (1.7-8.2); BASOPHILS % (AUTO) 0.5 % (0-2); EOSINOPHILS % (AUTO) 1.9 % (0-6); HEMATOCRIT 39.7 % (36.0-47.0); HEMOGLOBIN 13.5 g/dL (12.0-15.5); LYMPHOCYTES % (AUTO) 35.3 % (13-45); MEAN CORPUSCULAR HEMOGLOBIN 31.5 pg (27.0-33.4); MEAN CORPUSCULAR HGB CONC 33.9 g/dL (32.0-36.0); MEAN CORPUSCULAR VOLUME 93 fl (80-97); MONOCYTES % (AUTO) 12.8 % (3-13); PLATELET COUNT 173 10^3/uL (150-450); RED BLOOD COUNT 4.28 10^6/uL (3.72-5.28); RED CELL DISTRIBUTION WIDTH 13.5 % (11.5-14.0); SEGMENTED NEUTROPHILS % (AUTO) 49.5 % (42-78); TOTAL CELLS COUNTED % (AUTO) 100 %; WHITE BLOOD COUNT 4.2 10^3/uL (4.0-10.5)
[2019-08-16 16:37] LABS: APPEARANCE,URINE CLEAR; BILIRUBIN,URINE NEGATIVE (NEGATIVE); COLOR,URINE YELLOW; GLUCOSE, URINE NEGATIVE (NEGATIVE); KETONES,URINE NEGATIVE (NEGATIVE); PROTEIN,URINE NEGATIVE (NEGATIVE); URINE SPECIFIC GRAVITY 1.019; UROBILINOGEN,URINE NEGATIVE mg/dL (<2.0)
[2019-08-16 16:39] LABS: ALBUMIN 3.9 g/dL (3.5-5.0); ALKALINE PHOSPHATASE 77 U/L (38-126); ANION GAP 8 (5-19); ASPARTATE AMINO TRANSFERASE 25 U/L (14-36); BILIRUBIN,DIRECT 0.2 mg/dL (0.0-0.4); BILIRUBIN,TOTAL 0.3 mg/dL (0.2-1.3); BLOOD UREA NITROGEN 16 mg/dL (7-20); CALCIUM 9.1 mg/dL (8.4-10.2); CARBON DIOXIDE 32 mmol/L (22-30); CHLORIDE 103 mmol/L (98-107); GLUCOSE 125 mg/dL (75-110); POTASSIUM 4.2 mmol/L (3.6-5.0); TOTAL PROTEIN 7.1 g/dL (6.3-8.2)
[2019-08-16] MEDS ORDERED: FENTANYL CITRATE INJ/PF 100 MCG/2 ML AMPUL IM ONE (18:15)
[2019-08-16] MEDS ORDERED: PREDNISONE 20 MG TABLET PO ONE (18:15)
--- NOTE | 2019-08-16 18:21 | ER Document Report ---
ED General - General Chief Complaint: Pain All Over Stated Complaint: RUNNY NOSE/HEADACHE/NAUSEA/FEVER/CHEST PAIN Time Seen by Provider: 08/16/19 14:52 Primary Care Provider: CAROLYN BARBER FNP [NO LOCAL MD] - Follow up as needed Mode of Arrival: Ambulatory Notes: Patient is a 64-year-old female with a past medical history significant for chronic pain who presents to the emergency department with a chief complaint of widespread pain. She states she has disc herniations in the lumbar spine as well as in the cervical spine. She states that she has chronic pain that comes and goes. She is not currently on any pain medications. She is scheduled to see eye doctor regarding her pain in the near future. She states she can just no longer take it anymore. She states that she has not gotten any rest in relation, she pain and she is in. She denies any new injury fall or trauma. Denies any numbness tingling or weakness. Denies any saddle anesthesia, urinary or bowel incontinence or retention. TRAVEL OUTSIDE OF THE [place] IN LAST 30 DAYS: No - Related Data Allergies/Adverse Reactions: ibuprofen Allergy (Verified 07/13/19 13:33) morphine Allergy (Verified 07/13/19 13:33) Penicillins Allergy (Verified 07/13/19 13:33) Past Medical History - General Information source: Patient, Relative - Social History Smoking Status: Never Smoker Frequency of alcohol use: None Drug Abuse: None Family History: Reviewed & Not Pertinent Patient has suicidal ideation: No Patient has homicidal ideation: No Pulmonary Medical History: Reports: Hx Asthma Endocrine Medical History: Reports: Hx Diabetes Mellitus Type 2 Renal/ Medical History: Denies: Hx Peritoneal Dialysis GI Medical History: Reports: Hx Gastroesophageal Reflux Disease Musculoskeletal Medical History: Reports Hx Arthritis - Chronic back pain Psychiatric Medical History: Reports: Hx Anxiety Past Surgical History: Reports: Hx Cholecystectomy, Hx Gynecologic Surgery - Ovarian cyst, Hx Herniorrhaphy, Hx Hysterectomy - Immunizations Immunizations up to date: Yes Hx Diphtheria, Pertussis, Tetanus Vaccination: Yes Review of Systems - Review of Systems Musculoskeletal: Back pain, Joint pain, Muscle pain, Neck pain -: Yes All other systems reviewed and negative Physical Exam - Vital signs Vitals: Temp Pulse Resp BP Pulse Ox 98.6 F 104 H 22 H 136/69 H 94 08/16/19 14:25 08/16/19 14:25 08/16/19 14:25 08/16/19 14:25 08/16/19 14:25 - General General appearance: Appears well, Alert In distress: Moderate - Respiratory Respiratory status: No respiratory distress Chest status: Nontender Breath sounds: Normal Chest palpation: Normal - Cardiovascular Rhythm: Regular Heart sounds: Normal auscultation Murmur: No - Extremities General upper extremity: Normal inspection, Tender, Normal color, Normal ROM, Normal temperature General lower extremity: Normal inspection, Tender, Normal color, Normal ROM, Normal temperature, Normal weight bearing. No: John's sign - Neurological Neuro grossly intact: Yes Cognition: Normal Orientation: AAOx4 [place] Coma Scale Eye Opening: Spontaneous Yanci Coma Scale Verbal: Oriented [place] Coma Scale Motor: Obeys Commands [place] Coma Scale Total: 15 Speech: Normal Motor strength normal: LUE, RUE, LLE, RLE Sensory: Normal - Psychological Associated symptoms: Tearful - Skin Skin Temperature: Warm Skin Moisture: Dry Skin Color: Normal Course - Re-evaluation Re-evalutation: 08/16/19 18:17 Patient without new complaints. States these are chronic problems that she has been trying to deal with while she awaits to see her specialist. States she can no longer handle them by herself and came for assistance with the pain. PDMP was pulled and shows no chronic pain medication prescriptions. Should be given a dose of fentanyl here. Sent home with a short course of tramadol. Counseled her at length regarding the importance of outpatient follow-up and advised that she return here or any ER immediately with any new, persistent or worsening symptoms. 08/16/19 18:20 - Vital Signs Vital signs: Temp Pulse Resp BP Pulse Ox 98.6 F 104 H 22 H 136/69 H 94 08/16/19 14:25 08/16/19 14:25 08/16/19 14:25 08/16/19 14:25 08/16/19 14:25 - Laboratory Result Diagrams: 08/16/19 15:50 08/16/19 15:50 Laboratory results interpreted by me: 08/16/19 15:50 Carbon Dioxide 32 H Glucose 125 H Discharge - Discharge Clinical Impression: Chronic pain Qualifiers: Chronic pain type: chronic pain syndrome Qualified Code(s): G89.4 - Chronic pain syndrome Condition: Stable Disposition: HOME, SELF-CARE Instructions: Chronic Pain Control ([facility]) Additional Instructions: Please follow-up with your doctor for your pain as discussed. Return here or any ER immediately with any new, persistent or worsening symptoms. Prescriptions: Tramadol HCl [Ultram 50 mg Tablet] 50 mg PO Q6HP PRN #12 tablet PRN Reason: Referrals: CAROLYN BARBER FNP [NO LOCAL MD] - Follow up as needed
== END 2019-08-16 19:12 | disposition home or self-care (01) ==
LOC: ER 13:57
DX: G89.4 Chronic pain syndrome (principal); M54.9 Dorsalgia, unspecified; M54.2 Cervicalgia; M79.10 Myalgia, unspecified site; M25.50 Pain in unspecified joint; J45.909 Unspecified asthma, uncomplicated; E11.9 Type 2 diabetes mellitus without complications; Z88.8 Allergy status to other drugs, medicaments and biological substances; Z88.6 Allergy status to analgesic agent; Z88.5 Allergy status to narcotic agent; Z88.0 Allergy status to penicillin
CPT/HCPCS: 99283; 96372; 36415; 85025; 80053; 81001; J3010

== ENCOUNTER 2019-08-19 09:56 | Emergency (ER) | payer MEDICAID ==
--- NOTE | 2019-08-19 10:08 | ER Document Report ---
ED Medical Screen (RME) - General Chief Complaint: Chest Pain Stated Complaint: COUGH/POSSIBLE ASTHMA Time Seen by Provider: 08/19/19 10:03 Mode of Arrival: Ambulatory Information source: Patient Notes: 64-year-old female presents to ED for complaint of shortness of breath chest pain cough. She does have asthma and is wheezing. She states she has chest pain besides when she coughs. She states she is used her inhaler all night. The wheezing is all in her upper respiratory there is no wheezing in her lungs. Patient is alert oriented she is coughing nonproductive right now she is afebr ile right now. Patient has a history of high blood pressure cholesterol asthma, anxiety, depression, chronic back pain going down her legs. I have greeted and performed a rapid initial assessment of this patient. A comprehensive ED assessment and evaluation of the patient, analysis of test results and completion of medical decision making process will be conducted by an additional ED providers. TRAVEL OUTSIDE OF THE [place] IN LAST 30 DAYS: No - Related Data Allergies/Adverse Reactions: ibuprofen Allergy (Verified 07/13/19 13:33) morphine Allergy (Verified 07/13/19 13:33) Penicillins Allergy (Verified 07/13/19 13:33) Past Medical History Pulmonary Medical History: Reports: Hx Asthma Endocrine Medical History: Reports: Hx Diabetes Mellitus Type 2 Renal/ Medical History: Denies: Hx Peritoneal Dialysis GI Medical History: Reports: Hx Gastroesophageal Reflux Disease Musculoskeltal Medical History: Reports Hx Arthritis - Chronic back pain Psychiatric Medical History: Reports: Hx Anxiety Past Surgical History: Reports: Hx Cholecystectomy, Hx Gynecologic Surgery - Ovarian cyst, Hx Hysterectomy, Hx Inguinal Hernia, Other - Ventral hernia - Immunizations Immunizations up to date: Yes Hx Diphtheria, Pertussis, Tetanus Vaccination: Yes Physical Exam - Vital signs Vitals: Temp Pulse Resp BP Pulse Ox 97.6 F 89 20 150/74 H 94 08/19/19 09:59 08/19/19 09:59 08/19/19 09:59 08/19/19 09:59 08/19/19 09:59 Course - Vital Signs Vital signs: Temp Pulse Resp BP Pulse Ox 97.6 F 89 20 150/74 H 94 08/19/19 09:59 08/19/19 09:59 08/19/19 09:59 08/19/19 09:59 08/19/19 09:59
[2019-08-19 10:55] LABS: ABSOLUTE EOSINOPHILS # (AUTO) 0.2 10^3/uL (0.0-0.6); ABSOLUTE LYMPHOCYTES (AUTO) 1.5 10^3/uL (0.5-4.7); ABSOLUTE MONOCYTES (AUTO) 0.4 10^3/uL (0.1-1.4); BASOPHILS % (AUTO) 0.5 % (0-2); EOSINOPHILS % (AUTO) 3.8 % (0-6); HEMATOCRIT 38.1 % (36.0-47.0); LYMPHOCYTES % (AUTO) 37.1 % (13-45); MEAN CORPUSCULAR HEMOGLOBIN 31.3 pg (27.0-33.4); MEAN CORPUSCULAR HGB CONC 34.2 g/dL (32.0-36.0); MEAN CORPUSCULAR VOLUME 92 fl (80-97); MONOCYTES % (AUTO) 8.9 % (3-13); PLATELET COUNT 168 10^3/uL (150-450); RED BLOOD COUNT 4.16 10^6/uL (3.72-5.28); RED CELL DISTRIBUTION WIDTH 12.8 % (11.5-14.0); SEGMENTED NEUTROPHILS % (AUTO) 49.7 % (42-78); TOTAL CELLS COUNTED % (AUTO) 100 %
--- NOTE | 2019-08-19 11:16 | RADIOLOGY REPORT (SQ) ---
EXAM DESCRIPTION: CHEST 2 VIEWS COMPLETED DATE/TIME: 08/19/2019 9:57 am REASON FOR STUDY: Chest pain cough COMPARISON: 01/25/2016 EXAM PARAMETERS: NUMBER OF VIEWS: two views TECHNIQUE: Digital Frontal and Lateral radiographic views of the chest acquired. RADIATION DOSE: NA LIMITATIONS: none FINDINGS: LUNGS AND PLEURA: Lungs are hyperinflated. No focal consolidation or pleural effusion. N o pneumothorax. MEDIASTINUM AND HILAR STRUCTURES: No masses or contour abnormalities. HEART AND VASCULAR STRUCTURES: Heart normal size. No evidence for failure. BONES: No acute findings. HARDWARE: None in the chest. OTHER: No other significant finding. IMPRESSION: NO ACUTE RADIOGRAPHIC FINDING IN THE CHEST. TECHNICAL DOCUMENTATION: JOB ID: [id number] 2010 [employer]- All Rights Reserved Reading location - IP/workstation name: [email or web address]
[2019-08-19 11:23] LABS: ALBUMIN 3.9 g/dL (3.5-5.0); ALKALINE PHOSPHATASE 87 U/L (38-126); ANION GAP 7 (5-19); ASPARTATE AMINO TRANSFERASE 24 U/L (14-36); BILIRUBIN,DIRECT 0.2 mg/dL (0.0-0.4); BILIRUBIN,TOTAL 0.5 mg/dL (0.2-1.3); BLOOD UREA NITROGEN 16 mg/dL (7-20); CALCIUM 9.6 mg/dL (8.4-10.2); CARBON DIOXIDE 34 mmol/L (22-30); CHLORIDE 100 mmol/L (98-107); GLUCOSE 93 mg/dL (75-110); POTASSIUM 4.7 mmol/L (3.6-5.0); TOTAL PROTEIN 7.1 g/dL (6.3-8.2)
[2019-08-19 11:35] LABS: NT PRO BNP 118 pg/mL (<125)
[2019-08-19 11:45] LABS: TROPONIN I < 0.012 ng/mL
[2019-08-19] MEDS ORDERED: METHYLPREDNISOLONE INJ 125 MG/2 ML SDV IV ONE (12:01)
[2019-08-19] MEDS ORDERED: IPRATROPIUM/ALBUTEROL 0.5-2.5 MG/3 ML AMPUL NEB ONE ×2 (12:01→16:42)
[2019-08-19] MEDS: MAGNESIUM SULFATE/D5W 1 GM/100 ML RTUPB IV SCH ×2 (12:14→12:53)
--- NOTE | 2019-08-19 13:24 | ER Document Report ---
ED Respiratory Problem - General Chief Complaint: Chest Congestion Stated Complaint: COUGH/POSSIBLE ASTHMA Time Seen by Provider: 08/19/19 10:03 Primary Care Provider: GIGI DUNHAM DO [Primary Care Provider] - Follow up in 3-5 days Mode of Arrival: Ambulatory Notes: Patient is a 64-year-old female with a history of asthma who presents to the emergency department with shortness of breath. Patient states that she has felt short of breath since she was here 3 days ago. Patient does have a nebulizer machine at home and has been giving herself albuterol treatments, but states that she feels like it is not working. Her last treatment was at 4:00 this morning. Patient states that she has a history of hypertension, diabetes. TRAVEL OUTSIDE OF THE [place] IN LAST 30 DAYS: No - Related Data Allergies/Adverse Reactions: ibuprofen Allergy (Verified 07/13/19 13:33) morphine Allergy (Verified 07/13/19 13:33) Penicillins Allergy (Verified 07/13/19 13:33) Past Medical History - General Information source: Patient - Social History Smoking Status: Never Smoker Family History: Reviewed & Not Pertinent Patient has suicidal ideation: No Patient has homicidal ideation: No - Past Medical History Cardiac Medical History: Reports: Hx Hypercholesterolemia Pulmonary Medical History: Reports: Hx Asthma Endocrine Medical History: Reports: Hx Diabetes Mellitus Type 2 Renal/ Medical History: Denies: Hx Peritoneal Dialysis GI Medical History: Reports: Hx Gastroesophageal Reflux Disease Musculoskeletal Medical History: Reports Hx Arthritis - Chronic back pain Psychiatric Medical History: Reports: Hx Anxiety Past Surgical History: Reports: Hx Cholecystectomy, Hx Gynecologic Surgery - Ovarian cyst, Hx Hysterectomy, Hx Inguinal Hernia, Other - Ventral hernia - Immunizations Immunizations up to date: Yes Hx Diphtheria, Pertussis, Tetanus Vaccination: Yes Review of Systems - Review of Systems Notes: REVIEW OF SYSTEMS: CONSTITUTIONAL : Denies recent illness. Denies recent unintentional weight loss. Denies fever, chills, or sweats. EENT: Denies eye, ear, throat, or mouth pain, discharge, or symptoms. Denies nasal or sinus congestion. CARDIOVASCULAR: Denies chest pain. RESPIRATORY: See HPI. GASTROINTESTINAL: Denies nausea, vomiting, and diarrhea. Denies abdominal pain. Denies constipation. GENITOURINARY: Denies difficulty urinating, burning, blood in urine, urgency or frequency. MUSCULOSKELETAL: Denies neck and back pain. Denies joint pain or swelling. SKIN: Denies rash, itchiness, or lesions HEMATOLOGIC : Denies easy bruising or bleeding. LYMPHATIC: Denies swollen, painful, enlarged glands. NEUROLOGICAL: Denies no numbness or tingling denies weakness. Denies headache. Denies altered mental status. Denies alteration in speech. PSYCHIATRIC: Denies stress, anxiety, alteration in sleep patterns, or depression. All other systems reviewed and negative. Physical Exam - Vital signs Vitals: Temp Pulse Resp BP Pulse Ox 97.6 F 89 20 150/74 H 94 08/19/19 09:59 08/19/19 09:59 08/19/19 09:59 08/19/19 09:59 08/19/19 09:59 - Notes Notes: PHYSICAL EXAMINATION: GENERAL: Appears well, healthy, well-nourished, no acute distress. HEAD: Normocephalic, atraumatic. EYES: PERRL, conjunctiva normal, all extraocular movements intact, sclera nonicteric ENT: Moist mucous membranes. NECK: Supple, no noticeable swelling, redness, rash. Normal range of motion. LUNGS: Diminished breath sounds throughout all lung [place] CARDIOVASCULAR: S1-S2, regular rate, regular rhythm. Radial pulses 2+, normal. ABDOMEN: Normoactive bowel sounds. Soft, nontender, no guarding, no rebound tenderness, and no masses palpated. EXTREMITIES: Normal strength and range of motion, no pitting or edema. No cyanosis. NEUROLOGICAL: Moves all extremities upon command. Strength 5/5 in all extremities. PSYCH: Normal mood, normal affect. SKIN: Warm, dry. No rash, lesions, ulcerations noted. Normal skin turgor. Course - Re-evaluation Re-evalutation: 08/19/19 13:25 Patient states that she still feels short of breath despite the 3 duo nebs, magnesium, and Decadron. She is 94% on room air. 08/19/19 13:31 I spoke with Matty blake, the [facility] hospitalist. He will evaluate the patient. 08/19/19 16:40 CT of the chest is negative for any acute findings. No PE noted. Both ABGs appear to be erroneous and most likely venous lab draws, as the patient has a PO2 in the 60s. Patient does not appear severely hypoxic. Don Day, PA and I went to bedside and spoke with the patient and developed the plan of care. Patient will be started on pain medication, as she states that the shortness of breath is there because of her pain in her chest from falling 2 years ago. Her home with 3 days worth of pain medication, steroids, and instructions on use of albuterol. She is in agreement with this plan. Follow-up precautions were given. Verbal discharge instructions were given to the patient. They verbalized understanding. They are stable for discharge. - Vital Signs Vital signs: Temp Pulse Resp BP Pulse Ox 98.0 F 118 H 14 127/73 H 94 08/19/19 18:02 08/19/19 18:02 08/19/19 18:02 08/19/19 18:02 08/19/19 18:02 - Laboratory Result Diagrams: 08/19/19 10:39 08/19/19 10:39 Laboratory results interpreted by me: 08/19/19 08/19/19 08/19/19 10:39 13:53 15:56 Carbonic Acid 1.44 H 1.52 H ABG pCO2 47.9 H 50.6 H ABG pO2 65.6 L 67.5 L ABG HCO3 27.3 H 29.1 H ABG Total CO2 28.7 H 30.6 H ABG O2 Saturation 92.3 L 92.9 L Carbon Dioxide 34 H Discharge - Discharge Clinical Impression: Chest wall pain Asthma exacerbation Qualifiers: Asthma severity: moderate Asthma persistence: unspecified Qualified Code(s): J45.901 - Unspecified asthma with (acute) exacerbation Condition: Stable Disposition: HOME, SELF-CARE Additional Instructions: You were seen today in the emergency department for chronic pain and shortness of breath. Please follow-up with your primary care provider. Please continue nebulizer treatments at home every 4 hours. Take your steroids, pain medication as needed, and start Zyrtec. Prescriptions: Cetirizine HCl [All Day Allergy] 10 mg PO DAILY #30 tablet Methylprednisolone [Medrol Dosepack (4 mg/Tab) 21 Tab/Dosepak] 4 mg PO ASDIR PRN #21 tab.ds.pk PRN Reason: Oxycodone HCl/Acetaminophen [Percocet 5-325 mg Tablet] 1 - 2 tab PO Q4H PRN #15 tablet PRN Reason: Referrals: GIGI DUNHAM DO [Primary Care Provider] - Follow up in 3-5 days
[2019-08-19 14:13] LABS: ARTERIAL BLOOD BASE EXCESS 1.4 mmol/L; ARTERIAL BLOOD H2CO3 1.44 mmol/L (1.05-1.35); ARTERIAL BLOOD HCO3 27.3 mmol/L (20-24); ARTERIAL BLOOD O2 SATURATION 92.3 % (94-98); ARTERIAL BLOOD PCO2 47.9 mmHg (35-45); ARTERIAL BLOOD PH 7.37 (7.35-7.45); ARTERIAL BLOOD PO2 65.6 mmHg (80-100); ARTERIAL BLOOD TOTAL CO2 28.7 mmol/L (21-25)
[2019-08-19 14:27] LABS: A TYPE INFLUENZA AG NEGATIVE (NEGATIVE); B INFLUENZA AG NEGATIVE (NEGATIVE)
[2019-08-19 14:31] LABS: ARTERIAL BLOOD FIO2 ROOM AIR
--- NOTE | 2019-08-19 15:53 | EKG REPORT ---
SEVERITY:- ABNORMAL ECG - SINUS RHYTHM LEFT VENTRICULAR HYPERTROPHY : Confirmed by: Alisha Fernandez MD 19-Aug-2019 15:52:15
--- NOTE | 2019-08-19 16:12 | RADIOLOGY REPORT (SQ) ---
EXAM DESCRIPTION: CTA CHEST COMPLETED DATE/TIME: 08/19/2019 3:40 pm REASON FOR STUDY: shortness of breath COMPARISON: 01/16/2016 TECHNIQUE: CT scan of the chest performed using helical scanning technique with dynamic intravenous contrast injection. Images reviewed with lung, soft tissue and bone windows. Reconstructed coronal and sagittal MPR images reviewed. Additional 3 dimensional post-processing performed to develop Maximal Intensity Projection images (SC P). All images stored on PACS. All CT scanners at this facility use dose modulation, iterative reconstruction, and/or weight based d osing when appropriate to reduce radiation dose to as low as reasonably achievable (ALARA). [facility]: Dose Right [facility]: CareDose [facility]: Dose Right [facility]: Teradose 4D [facility]: [employer] CONTRAST TYPE AND DOSE: contrast/concentration: Isovue mg/ml; Total Contrast Delivered: 71.0 ml; To popeye Saline Delivered: 42.4 ml Contrast bolus optimized for the pulmonary arteries. Not diagnostic for the aorta. RENAL FUNCTION: GFR > 60. RADIATION DOSE: CT Rad equipment meets quality standard of care and radiation dose reduction techniq ues were employed. CTDIvol: 19.8 - 37.1 mGy. DLP: 1292 mGy-cm. . LIMITATIONS: Motion artifact. FINDINGS: LUNGS AND PLEURA: No masses, infiltrates, or pneumothorax. No pleural effusions or pleura l calcifications. AORTA AND GREAT VESSELS: No aneurysm. Contrast bolus not optimized for the aorta. HEART: No pericardial effusion. Cardiomegaly. PULMONARY ARTERIES: No emboli visualized in the main pulmonary arteries or the segmental branches. HILAR AND MEDIASTINAL STRUCTURES: No identified masses or abnormal nodes. HARDWARE: None in the chest. UPPER ABDOMEN: No significant findings. Limited exam. THYROID AND OTHER SOFT TISSUES: No masses. No adenopathy. BONES: Nothing acute. 3D MIPS: Confirm above findings. OTHER: No other significant finding. IMPRESSION: No PE. No acute findings. COMMENT: Quality ID # [id number]: Final reports with documentation of one or more dose reduction techniques (e.g., Automated exposure control, adjustment of the mA and/or kV according to patient size, use of iterative reconstruction technique) TECHNICAL DOCUMENTATION: JOB ID: [id number] 2010 [employer]- All Rights Reserved Reading location - IP/workstation name: [email or web address]
[2019-08-19 16:23] LABS: ARTERIAL BLOOD H2CO3 1.52 mmol/L (1.05-1.35); ARTERIAL BLOOD HCO3 29.1 mmol/L (20-24); ARTERIAL BLOOD O2 SATURATION 92.9 % (94-98); ARTERIAL BLOOD PCO2 50.6 mmHg (35-45); ARTERIAL BLOOD PH 7.38 (7.35-7.45); ARTERIAL BLOOD PO2 67.5 mmHg (80-100); ARTERIAL BLOOD TOTAL CO2 30.6 mmol/L (21-25)
[2019-08-19 16:24] LABS: ARTERIAL BLOOD FIO2 21%
--- NOTE | 2019-08-19 17:05 | PDOC CONSULTATION ---
Consultation Consult Date: 08/19/19 Attending physician:: AMNA WAITE Provider Consulted: EDSON KIRK JR Consult reason:: SOB History of Present Illness Admission Date/PCP: GIGI DUNHAM DO History of Present Illness: GOLDIE SHAVER is a 64 year old female comes in today with shortness of breath. Patient states she has a past history of asthma as well as chest wall pain. Patient moved down here from [place] about 3 months ago and is living with a friend. Patient states that up in [place] she was involved in a pain clinic for back pain and chest pain as well as leg pain. Patient was just here in the emergency room on 15 August with diffuse generalized pain and then prior to that July 13 with chest pain.. On on the 15 August she was treated with Ultram but the patient states through an medical interpreter, that the Ultram did not help. She states in the past that stronger pain medicines have helped her chest wall pain. Patient states that when she has chest wall pain or back pain that she has difficulty breathing. Patient's cardiac work-up on July 13, 2019 was negative for acute coronary syndrome. Patient also states that her breathing seemed to get worse the last 3 days and she has been using her nebulizer machine but with very little relief. Here in the emergency room patient did have 3 nebulizer treatments as well as magnesium and steroids. Patient has been able to obtain an oxygen saturation of 94% on room air. Past Medical History Cardiac Medical History: Reports: Hyperlipidema Pulmonary Medical History: Reports: Asthma Endocrine Medical History: Reports: Diabetes Mellitus Type 2 GI Medical History: Reports: Gastroesophageal Reflux Disease Musculoskeltal Medical History: Reports: Arthritis - Chronic back pain Past Surgical History Past Surgical History: Reports: Cholecystectomy, Hysterectomy, Other - Ventral hernia Social History Smoking Status: Never Smoker Frequency of Alcohol Use: None Hx Recreational Drug Use: No Hx Prescription Drug Abuse: No Family History Family History: Reviewed & Not Pertinent Parental Family History Reviewed: No Children Family History Reviewed: No Sibling(s) Family History Reviewed.: No Medication/Allergy Home Medications: Atorvastatin Calcium [Lipitor 40 mg Tablet] 40 mg PO QHS 01/16/16 Nifedipine [Procardia XL 30 mg Tablet] 30 mg PO DAILY 01/16/16 Fluticasone Propionate [Flovent Diskus 50 mcg] 2 spray NASL BID 01/17/16 Pramipexole Di-HCl [Mirapex] 0.125 mg PO QHS #30 tablet 01/22/16 Albuterol Sulfate [Proair HFA Inhalation Aerosol 8.5 gm MDI] 2 puff IH Q4H PRN #1 mdi 09/15/18 Cephalexin Monohydrate [Keflex 500 mg Capsule] 500 mg PO Q6 08/19/19 Cetirizine HCl [All Day Allergy] 10 mg PO DAILY #30 tablet 08/19/19 Clonazepam [Klonopin] 1 mg PO TID PRN 08/19/19 Cyanocobalamin (Vitamin B-12) [Vitamin B-12] 50 mcg PO DAILY 08/19/19 Dulaglutide [Trulicity] 0.75 mg SQ MO 08/19/19 Fluticasone Propionate [Flovent Hfa] 2 puff IH DAILY 08/19/19 Oxycodone HCl/Acetaminophen [Percocet 5-325 mg Tablet] 1 - 2 tab PO Q4H PRN #15 tablet 08/19/19 Paroxetine HCl [Paxil 20 mg Tablet] 20 mg PO QHS 08/19/19 Ranitidine HCl [Zantac] 150 mg PO BID 08/19/19 Tizanidine HCl [Zanaflex 4 mg Tablet] 4 mg PO TIDP PRN 08/19/19 Tramadol HCl [Ultram 50 mg Tablet] 50 mg PO Q6HP PRN 08/19/19 Allergies/Adverse Reactions: ibuprofen Allergy (Verified 07/13/19 13:33) morphine Allergy (Verified 07/13/19 13:33) Penicillins Allergy (Verified 07/13/19 13:33) Review of Systems Constitutional: ABSENT: chills, fever(s), headache(s), weight gain, weight loss Cardiovascular: PRESENT: other - Chest wall pain on the right Respiratory: PRESENT: dyspnea Physical Exam Vital Signs: Temp Pulse Resp BP Pulse Ox 97.6 F 89 23 H 134/77 H 97 08/19/19 09:59 08/19/19 09:59 08/19/19 15:01 08/19/19 14:01 08/19/19 15:01 Intake & Output 08/18/19 08/19/19 08/20/19 06:59 06:59 06:59 Intake Total 200 Balance 200 Weight 110.677 kg General appearance: PRESENT: no acute distress, well-developed, well-nourished Respiratory exam: PRESENT: wheezes Cardiovascular exam: PRESENT: RRR. ABSENT: diastolic murmur, rubs, systolic murmur Neurological exam: PRESENT: alert, awake, oriented to person, oriented to place, oriented to time, oriented to situation, CN II-XII grossly intact. ABSENT: motor sensory deficit Psychiatric exam: PRESENT: appropriate affect, normal mood. ABSENT: homicidal ideation, suicidal ideation Results Laboratory Results: 08/19/19 10:39 08/19/19 10:39 08/19/19 08/19/19 08/19/19 10:39 10:39 13:53 WBC 4.0 RBC 4.16 Hgb 13.0 Hct 38.1 MCV 92 MCH 31.3 MCHC 34.2 RDW 12.8 Plt Count 168 Seg Neutrophils % 49.7 Carbonic Acid 1.44 H HCO3/H2CO3 Ratio 18:1 ABG pH 7.37 ABG pCO2 47.9 H ABG pO2 65.6 L ABG HCO3 27.3 H ABG O2 Saturation 92.3 L ABG Base Excess 1.4 FiO2 ROOM AIR Sodium 141.0 Potassium 4.7 Chloride 100 Carbon Dioxide 34 H Anion Gap 7 BUN 16 Creatinine 0.61 Est GFR ( Amer) > 60 Glucose 93 Calcium 9.6 Magnesium 1.9 Total Bilirubin 0.5 AST 24 Alkaline Phosphatase 87 Total Protein 7.1 Albumin 3.9 08/19/19 15:56 WBC RBC Hgb Hct MCV MCH MCHC RDW Plt Count Seg Neutrophils % Carbonic Acid 1.52 H HCO3/H2CO3 Ratio 19:1 ABG pH 7.38 ABG pCO2 50.6 H ABG pO2 67.5 L ABG HCO3 29.1 H ABG O2 Saturation 92.9 L ABG Base Excess 3.0 FiO2 21% Sodium Potassium Chloride Carbon Dioxide Anion Gap BUN Creatinine Est GFR ( Amer) Glucose Calcium Magnesium Total Bilirubin AST Alkaline Phosphatase Total Protein Albumin 08/19/19 10:39 Troponin I < 0.012 NT-Pro-B Natriuret Pep 118 Impressions: Chest X-Ray 08/19/19 10:09 IMPRESSION: NO ACUTE RADIOGRAPHIC FINDING IN THE CHEST. Chest/Abdomen CTA 08/19/19 14:02 IMPRESSION: No PE. No acute findings. Assessment and Plan - Diagnosis (1) Obesity Is this a current diagnosis for this admission?: Yes (2) Obstructive sleep apnea Is this a current diagnosis for this admission?: Yes (3) Chest wall pain Is this a current diagnosis for this admission?: Yes (4) Asthma exacerbation Is this a current diagnosis for this admission?: Yes (5) Chronic pain Qualifiers: Chronic pain type: chronic pain syndrome Qualified Code(s): G89.4 - Chronic pain syndrome Is this a current diagnosis for this admission?: Yes - Plan Summary Summary: In summary this is a 64-year-old female, primary language appears to be [place] but she does speak Kinyarwanda as well. Patient's history with a medical interpreter who speaks fluent [place] feels that when she gets chest wall pain is when she develops the shortness of breath. Patient states that this is been going on for at least 2 years. She probably does in fact have some degree underlying asthma though this is not proven by radiographs. Patient states that when she has her pain medicine she does not have any dif ficulty breathing. Patient has had a very thorough work-up as well as treatment here in the ED, spe cifically for this problem she is had a CTA of the chest, which reveals no evidence of pulmonary embolism, pneumonia, hyperinflated lungs, or other etiologies for her shortness of breath. Patient's white count on all 3 of her visits to the ED have been normal including today which is 4.2. Her flu swab today is negative, BNP is normal at 118, troponin is negative. Patient's blood gas here in the ER on 2 occasions does reveal a significant acute underlying respiratory problem. I agree with the ER provider to treat the patient with a very short course of analgesics, a Medrol dose pack, inhaler, and something for seasonal allergies. The patient does in fact have an appointment with a clinic in the near future. At the time of discharge patient was able to speak in full sentences for at le ast 15 minutes with no evidence of hypoxia or respiratory distress. This was done with an medical interpreter who speaks fluent [place]. All of patient's questions were answered and she agreed with the treatment plan. Patient was told to return to the emergency room for any worsening of her symptoms. - Time Time Spent with patient: 35 or more minutes
[2019-08-19 18:02] VITALS: BP 127/73
== END 2019-08-19 18:02 | disposition home or self-care (01) ==
LOC: ER 09:56
DX: J45.901 Unspecified asthma with (acute) exacerbation (principal); R07.89 Other chest pain; W19.XXXA Unspecified fall, initial encounter; R06.02 Shortness of breath; I10 Essential (primary) hypertension; E11.9 Type 2 diabetes mellitus without complications; Z88.8 Allergy status to other drugs, medicaments and biological substances; Z88.6 Allergy status to analgesic agent; Z88.5 Allergy status to narcotic agent; Z88.0 Allergy status to penicillin
CPT/HCPCS: 93005; 94640 ×2; 99285; 96375; 96365; 36415; 82803; 83735; 85025; 80053; 84484; 87804; 83880; 71046; 71275; 93010; 36600; J2930; J3475; J7620

== ENCOUNTER → 2019-09-14 | Outpatient (CLI) | payer MEDICAID ==
--- NOTE | 2019-09-14 10:28 | RADIOLOGY REPORT (SQ) ---
EXAM DESCRIPTION: LUMBAR SPINE COMPLETE IMAGES COMPLETED DATE/TIME: 09/14/2019 10:18 am REASON FOR STUDY: LUMBAGO WITH SCIATICA, LEFT SIDE M54.42 LUMBAGO WITH SCIATICA, LEFT SIDE COMPARISON: None. NUMBER OF VIEWS: Five views including obliques. TECHNIQUE: AP, lateral, oblique, and sacral radiographic images acquired of the lumbar spine. LIMITATIONS: None. FINDINGS: MINERALIZATION: Normal. SEGMENTATION: Normal. No transitional anatomy. ALIGNMENT: Normal. VERTEBRAE: Maintained height. No fracture or worrisome bone lesion. DISCS: Disc space narrowing at L5-S1. POSTERIOR ELEMENTS: Pedicles and facets are intact. No pars defect or posterior arch defects. HARDWARE: None in the spine. PARASPINAL SOFT TISSUES: Normal. PELVIS: Intact as visualized. No fractures or worrisome bone lesions. SI joints intact. OTHER: No other significant finding. IMPRESSION: Disc space narrowing at L5-S1. No other significant findings. TECHNICAL DOCUMENTATION: JOB ID: [id number] 2010 [employer]- All Rights Reserved Reading location - IP/workstation name: [email or web address]
== END ==
LOC: OD 09:41
PROVIDERS: ATTEND Nurse Practitioner Family
DX: M54.42 Lumbago with sciatica, left side (principal)
CPT/HCPCS: 72110

== ENCOUNTER → 2019-10-20 | Outpatient (CLI) | payer MEDICAID ==
--- NOTE | 2019-10-20 15:32 | RADIOLOGY REPORT (SQ) ---
EXAM DESCRIPTION: U/S THYROID/SFT TISS HD NECK IMAGES COMPLETED DATE/TIME: 10/20/2019 1:00 pm REASON FOR STUDY: E04.1 NONTOXIC SINGLE THYROID NODULE E04.1 NONTOXIC SINGLE THYROID NODULE COMPARISON: None. TECHNIQUE: Dynamic and static ha-scale images acquired of the thyroid gland. Selected additional c olor/power Doppler images recorded. All images stored to PACS. LIMITATIONS: None. FINDINGS: RIGHT LOBE: The right lobe measures 5.5 x 2.0 x 2.1 cm. The gland is diffusely heterogene ous in echotexture. There is a complex cystic lesion measured 1.3 x 1.0 x 1.0 cm. There is a he w as solid 9 x 9 x 8 mm nodule. The cystic lesion is a TR 1 lesion and needs no intervention at this t josselyn. The small solid lesion is a TR 2 lesion an no intervention is recommended based on size. LEFT LOBE: The left lobe measures 4.4 x 1.6 x 1.7 cm. Heterogeneous echotexture throughout. Small c ystic nodule measured 5 x 4 x 4 mm. ISTHMUS: 9 mm in greatest diameter. Heterogeneous echotexture. Small 9 x 10 x 8 mm hypoechoic nodul e. This is spongiform in appearance and no further intervention is needed. OTHER: There is a solid 1.3 x 1.4 x 1.2 cm lesion off the inferior margin of the right lobe of the gl and. This could represent lymph node. Less likely parathyroid lesion. IMPRESSION: Heterogeneous echogenicity throughout both lobes of the thyroid and isthmus. No suspici ous lesions at this time. There is a 1.3 x 1.4 x 1.2 cm lesion which appears to lie just inferior to the right lobe of the thyroid gland. This could represent lymph node. Possibly parathyroid adenoma . Clinical correlation is needed. TECHNICAL DOCUMENTATION: JOB ID: [id number] 2010 [employer]- All Rights Reserved Reading location - IP/workstation name: [email or web address]
== END ==
LOC: RAD 12:19
PROVIDERS: ATTEND Nurse Practitioner Family
DX: E04.1 Nontoxic single thyroid nodule (principal)
CPT/HCPCS: 76536

== ENCOUNTER 2019-12-02 15:28 | Emergency (ER) | payer MEDICAID ==
--- NOTE | 2019-12-02 16:40 | ER Document Report ---
ED Medical Screen (RME) - General Chief Complaint: Chest Pain Stated Complaint: CHEST PAIN,FEET SWELLING Time Seen by Provider: 12/02/19 16:30 Primary Care Provider: ISSA GALICIA NP [Primary Care Provider] - Follow up as needed Mode of Arrival: Ambulatory Information source: Patient Notes: HPI; 64-year-old female presents emergency room complaining of intermittent chest tightness that started yesterday that has gotten worse today radiating into her jaw and bilateral arms. Also complaining of bilateral pedal edema for the past 3 days. PE: Alert and oriented x3. Mild distress noted. Lungs with bibasilar rales no rhonchi, no wheezes. Heart: Regular rate and rhythm without murmurs, rubs, gallops. 2+ pitting edema bilaterally. I have greeted and performed a rapid initial assessment of this patient. A comprehensive ED assessment and evaluation of the patient, analysis of test results and completion of the medical decision making process will be conducted by additional ED providers. I have specifically instructed the patient or family members with the patient to immediately return to any nursing staff should anything change in the patient's condition or with their chief complaint. TRAVEL OUTSIDE OF THE [place] IN LAST 30 DAYS: No - Related Data Allergies/Adverse Reactions: ibuprofen Allergy (Verified 12/02/19 16:35) morphine Allergy (Verified 12/02/19 16:35) Penicillins Allergy (Verified 12/02/19 16:35) Past Medical History - Social History Chew tobacco use (# tins/day): No Frequency of alcohol use: None Drug Abuse: None - Past Medical History Cardiac Medical History: Reports: Hx Hypercholesterolemia Pulmonary Medical History: Reports: Hx Asthma Endocrine Medical History: Reports: Hx Diabetes Mellitus Type 2 Renal/ Medical History: Denies: Hx Peritoneal Dialysis GI Medical History: Reports: Hx Gastroesophageal Reflux Disease Musculoskeltal Medical History: Reports Hx Arthritis - Chronic back pain Psychiatric Medical History: Reports: Hx Anxiety Past Surgical History: Reports: Hx Cholecystectomy, Hx Gynecologic Surgery - Ovarian cyst, Hx Hysterectomy, Hx Inguinal Hernia, Other - Ventral hernia - Immunizations Immunizations up to date: Yes Hx Diphtheria, Pertussis, Tetanus Vaccination: Yes Physical Exam - Vital signs Vitals: Temp Pulse Resp BP Pulse Ox 98.6 F 79 18 134/69 H 95 12/02/19 15:43 12/02/19 15:43 12/02/19 15:43 12/02/19 15:43 12/02/19 15:43 Course - Vital Signs Vital signs: Temp Pulse Resp BP Pulse Ox 98.6 F 79 18 134/69 H 95 12/02/19 16:30 12/02/19 15:43 12/02/19 15:43 12/02/19 15:43 12/02/19 15:43 Doctor's Discharge - Discharge Referrals: ISSA GALICIA NP [Primary Care Provider] - Follow up as needed
--- NOTE | 2019-12-02 17:03 | RADIOLOGY REPORT (SQ) ---
EXAM DESCRIPTION: CHEST SINGLE VIEW IMAGES COMPLETED DATE/TIME: 12/02/2019 4:49 pm REASON FOR STUDY: chest pain COMPARISON: 08/19/2019 EXAM PARAMETERS: NUMBER OF VIEWS: One view. TECHNIQUE: Single frontal radiographic view of the chest acquired. RADIATION DOSE: NA LIMITATIONS: None. FINDINGS: LUNGS AND PLEURA: No opacities, masses or pneumothorax. No pleural effusion. MEDIASTINUM AND HILAR STRUCTURES: No masses. Contour normal. HEART AND VASCULAR STRUCTURES: Cardiomegaly. Normal vasculature. BONES: No acute findings. HARDWARE: None in the chest. OTHER: No other significant finding. IMPRESSION: 1. No acute pulmonary findings. 2. Cardiomegaly. No evidence for failure. TECHNICAL DOCUMENTATION: JOB ID: [id number] [employer]- All Rights Reserved Reading location - IP/workstation name: [email or web address]
[2019-12-02] MEDS ORDERED: ASPIRIN 81 MG TABLET, CHEWABLE PO ONE (17:16)
[2019-12-02 17:22] LABS: ABSOLUTE BASOPHILS # (AUTO) 0.1 10^3/uL (0.0-0.2); ABSOLUTE EOSINOPHILS # (AUTO) 0.1 10^3/uL (0.0-0.6); ABSOLUTE LYMPHOCYTES (AUTO) 1.6 10^3/uL (0.5-4.7); ABSOLUTE MONOCYTES (AUTO) 0.4 10^3/uL (0.1-1.4); ABSOLUTE NEUT (AUTO) 2.2 10^3/uL (1.7-8.2); BASOPHILS % (AUTO) 1.3 % (0-2); HEMATOCRIT 37.8 % (36.0-47.0); HEMOGLOBIN 12.8 g/dL (12.0-15.5); LYMPHOCYTES % (AUTO) 36.8 % (13-45); MEAN CORPUSCULAR HEMOGLOBIN 31.3 pg (27.0-33.4); MEAN CORPUSCULAR HGB CONC 33.9 g/dL (32.0-36.0); MEAN CORPUSCULAR VOLUME 92 fl (80-97); MONOCYTES % (AUTO) 9.4 % (3-13); PLATELET COUNT 183 10^3/uL (150-450); RED CELL DISTRIBUTION WIDTH 13.6 % (11.5-14.0); SEGMENTED NEUTROPHILS % (AUTO) 49.5 % (42-78); TOTAL CELLS COUNTED % (AUTO) 100 %; WHITE BLOOD COUNT 4.4 10^3/uL (4.0-10.5)
[2019-12-02 17:37] LABS: ALKALINE PHOSPHATASE 76 U/L (38-126); ASPARTATE AMINO TRANSFERASE 29 U/L (14-36); BILIRUBIN,TOTAL 0.5 mg/dL (0.2-1.3); BLOOD UREA NITROGEN 21 mg/dL (7-20); CALCIUM 9.4 mg/dL (8.4-10.2); CARBON DIOXIDE 29 mmol/L (22-30); CHLORIDE 105 mmol/L (98-107); CREATINE KINASE 93 U/L (30-135); GLUCOSE 92 mg/dL (75-110); POTASSIUM 4.2 mmol/L (3.6-5.0); TOTAL PROTEIN 6.7 g/dL (6.3-8.2)
[2019-12-02 17:44] LABS: ANION GAP 4 (5-19)
[2019-12-02 17:47] LABS: CREATINE KINASE MB 1.05 ng/mL (<4.55); NT PRO BNP 96 pg/mL (<125); TROPONIN I < 0.012 ng/mL
--- NOTE | 2019-12-02 19:34 | EKG REPORT ---
SEVERITY:- ABNORMAL ECG - SINUS RHYTHM LEFT VENTRICULAR HYPERTROPHY : Confirmed by: Alisha Fernandez MD 02-Dec-2019 19:33:07
--- NOTE | 2019-12-02 20:52 | ER Document Report ---
ED Cardiac - General Chief Complaint: Chest Pain Stated Complaint: CHEST PAIN,FEET SWELLING Time Seen by Provider: 12/02/19 16:30 Primary Care Provider: TRI MINAYA MD [ACTIVE STAFF] - Follow up as needed KAMRYN RAMOS MD [ACTIVE STAFF] - Follow up as needed AMBER BAI MD [ACTIVE STAFF] - Follow up as needed ISSA GALICIA NP [NURSE PRACTITIONER] - Follow up in 3-5 days Mode of Arrival: Ambulatory Notes: Patient is a 64-year-old female who presents the emergency department with a chief complaint of left-sided chest pain and left arm pain that started yesterday. She states that started around 1:00 in the afternoon. Patient states that she took a [place] and went to sleep and the pain got better. She presented to the emergency department patient has history of fall in the past. She is on chronic pain management. Patient also has history of an [place] in the past. TRAVEL OUTSIDE OF THE [place] IN LAST 30 DAYS: No - Related Data Allergies/Adverse Reactions: ibuprofen Allergy (Verified 12/02/19 17:12) morphine Allergy (Verified 12/02/19 17:12) Penicillins Allergy (Verified 12/02/19 17:12) Past Medical History - General Information source: Patient - Social History Smoking Status: Never Smoker Chew tobacco use (# tins/day): No Frequency of alcohol use: None Drug Abuse: None Family History: Reviewed & Not Pertinent - Past Medical History Cardiac Medical History: Reports: Hx Congestive Heart Failure, Hx Hypercholesterolemia, Hx Hypertension Pulmonary Medical History: Reports: Hx Asthma Endocrine Medical History: Reports: Hx Diabetes Mellitus Type 2 Renal/ Medical History: Reports: Hx Kidney Stones. Denies: Hx Peritoneal Dialysis GI Medical History: Reports: Hx Gastroesophageal Reflux Disease Musculoskeletal Medical History: Reports Hx Arthritis - Chronic back pain Psychiatric Medical History: Reports: Hx Anxiety, Hx Depression Past Surgical History: Reports: Hx Cholecystectomy, Hx Gynecologic Surgery - Ovarian cyst, Hx Hysterectomy, Hx Inguinal Hernia, Hx Orthopedic Surgery - l knee/r hand, Other - Ventral hernia - Immunizations Immunizations up to date: Yes Hx Diphtheria, Pertussis, Tetanus Vaccination: Yes Review of Systems - Review of Systems Notes: REVIEW OF SYSTEMS: CONSTITUTIONAL : Denies recent illness. Denies recent unintentional weight loss. Denies fever, chills, or sweats. EENT: Denies eye, ear, throat, or mouth pain, discharge, or symptoms. Denies nasal or sinus congestion. CARDIOVASCULAR: See HPI. RESPIRATORY: Denies shortness of breath, cough, congestion, difficulty breathing, or wheezing. GASTROINTESTINAL: Denies nausea, vomiting, and diarrhea. Denies abdominal pain. Denies constipation. GENITOURINARY: Denies difficulty urinating, burning, blood in urine, urgency or frequency. MUSCULOSKELETAL: Denies neck and back pain. See HPI. SKIN: Denies rash, itchiness, or lesions HEMATOLOGIC : Denies easy bruising or bleeding. LYMPHATIC: Denies swollen, painful, enlarged glands. NEUROLOGICAL: Denies no numbness or tingling denies weakness. Denies headache. Denies altered mental status. Denies alteration in speech. PSYCHIATRIC: Denies stress, anxiety, alteration in sleep patterns, or depression. All other systems reviewed and negative. Physical Exam - Vital signs Vitals: Temp Pulse Resp BP Pulse Ox 98.6 F 79 18 134/69 H 95 12/02/19 15:43 12/02/19 15:43 12/02/19 15:43 12/02/19 15:43 12/02/19 15:43 - Notes Notes: PHYSICAL EXAMINATION: GENERAL: Appears obese, no acute distress. HEAD: Normocephalic, atraumatic. EYES: PERRL, conjunctiva normal, all extraocular movements intact, sclera nonicteric ENT: Moist mucous membranes. NECK: Supple, no noticeable swelling, redness, rash. Normal range of motion. LUNGS: Equal breath sounds bilaterally and clear to auscultation. No wheezes rales or rhonchi. CARDIOVASCULAR: S1-S2, regular rate, regular rhythm. Radial pulses 2+, normal. ABDOMEN: Normoactive bowel sounds. Soft, nontender, no guarding, no rebound tenderness, and no masses palpated. EXTREMITIES: Normal strength and range of motion. No cyanosis. Non pitting edema noted. NEUROLOGICAL: Moves all extremities upon command. Strength 5/5 in all extremities. PSYCH: Normal mood, normal affect. SKIN: Warm, dry. No rash, lesions, ulcerations noted. Normal skin turgor. Course - Re-evaluation Re-evalutation: 12/02/19 20:52 Presentation of chest pain in an otherwise well appearing patient. Low clinical suspicion for ACS given clinical history, exam, EKG without ST elevations or depressions, and negative initial troponin. HEART score less than or equal to 3. PE also seems unlikely given clinical history, absence of tachycardia or dyspnea. Patient is PERC criteria negative. CXR without evidence of pneumothorax or pneumonia. No widened mediastinum. Aortic dissection also seems unlikely given history, symmetric pulses, CXR, and vitals. HEART Score: History:0 EC Age:1 Risk Factors:1 Troponin:0 Total: 2 Chest pain in a patient without evidence of cardiac or other serious etiology on workup today. I discussed with patient that, based on their age, risk factors and emergency department testing today, the likelihood that their symptoms are related to a heart attack is very low (estimated risk of heart attack or over the next 30 days of less than 1%). The patient demonstrates decision making capacity and has verbalized an understanding of these risks to me. Based on this, the patient has chosen to follow-up as an outpatient. Usual chest pain return precautions reviewed. The patient states understanding and agreement with this plan. Patient reports that her lower extremity swelling has decreased. Hematology is unremarkable. Chest x-ray shows stable cardiomegaly. Chemistries are also unremarkable. LFTs all normal. Troponin is negative and BNP is only 96. Since the patient's edema has improved with no medications, will send the patient home with RAY quevedo. Will also refer her to cardiology, as she has not followed up with a offender employment specialist in the past 2 to 3 years. She is in agreement with this p [place]. I have a low suspicion for ACS, aortic dissection, pneumonia, or any life- threatening etiology at this time. Follow-up precautions were given. Verbal discharge instructions were given to the patient. They verbalized understanding. They are stable for discharge. - Vital Signs Vital signs: Temp Pulse Resp BP Pulse Ox 98.4 F 79 18 130/89 H 96 12/02/19 21:01 12/02/19 15:43 12/02/19 21:01 12/02/19 21:01 12/02/19 21:01 - Laboratory Result Diagrams: 12/02/19 17:10 12/02/19 17:10 Laboratory results interpreted by me: 12/02/19 17:10 Anion Gap 4 L BUN 21 H - EKG Interpretation by Me Additional EKG results interpreted by me: 12/02/19 20:56 Sinus rhythm. Rate 80. NH 168; QRS 80; QT 380; QTc 439. No ST elevations or depressions noted. No acute change from previous EKG done on August 19, 2019. Discharge - Discharge Clinical Impression: Chest wall pain Chest pain Qualifiers: Chest pain type: unspecified Qualified Code(s): R07.9 - Chest pain, unspecified Condition: Stable Disposition: HOME, SELF-CARE Additional Instructions: You were seen today for chest pain. The exact cause of your pain is unclear. However, based on your cardiac enzyme testing, chest x-ray, and EKG it does not appear that it is from an immediately life-threatening cause at this time. Although your testing here is normal is critical that you follow-up with your primary care physician for continued evaluation of this chest pain and possible stress testing. I recommended you see your physician within the next 24-48 hours to be evaluated for consideration of a stress test. Please return to emergency department immediately if you have worsening of your chest pain, shortness of breath, vomiting, become unable to exert yourself due to pain or difficulty breathing, you pass out, or have any pain that radiates into your arms, jaw, or back. Please also return if you have any additional symptoms that are concerning to you. Continue your current pain medication. Follow-up with pain management as needed. Follow-up with 1 of the offender employment specialist below for further evaluation. Wear the RAY hose given to you to help with the swelling in your legs. Referrals: ISSA GALICIA NP [NURSE PRACTITIONER] - Follow up in 3-5 days AMBER BAI MD [ACTIVE STAFF] - Follow up as needed KAMRYN ARMOS MD [ACTIVE STAFF] - Follow up as needed TRI MINAYA MD [ACTIVE STAFF] - Follow up as needed
[2019-12-02 21:28] VITALS: BP 130/89
== END 2019-12-02 21:30 | disposition home or self-care (01) ==
LOC: ER 15:28
DX: R07.89 Other chest pain (principal); M79.602 Pain in left arm; I11.9 Hypertensive heart disease without heart failure; R60.9 Edema, unspecified; I25.2 Old myocardial infarction; E11.9 Type 2 diabetes mellitus without complications; J45.909 Unspecified asthma, uncomplicated; G89.29 Other chronic pain; Z79.899 Other long term (current) drug therapy; Z88.8 Allergy status to other drugs, medicaments and biological substances; Z88.6 Allergy status to analgesic agent; Z88.5 Allergy status to narcotic agent; Z88.0 Allergy status to penicillin
CPT/HCPCS: 36415; 71045; 80053; 82550; 82553; 83880; 84484; 85025; 93005; 93010; 99285

== ENCOUNTER → 2020-01-20 | Outpatient (CLI) | payer MEDICAID | LOC: OD 14:16 | PROVIDERS: ATTEND Surgery | DX: E04.1 Nontoxic single thyroid nodule (principal); E11.9 Type 2 diabetes mellitus without complications | CPT/HCPCS: 36415; 82306; 82310; 83970 ==

== ENCOUNTER 2020-03-10 14:49 | Emergency (ER) | payer MEDICAID ==
--- NOTE | 2020-03-10 15:08 | ER Document Report ---
ED Medical Screen (RME) - General Chief Complaint: Chest Pain Stated Complaint: CHEST PAIN Time Seen by Provider: 03/10/20 14:58 Primary Care Provider: SOLITARIO RUSH MD [Primary Care Provider] - Follow up as needed Mode of Arrival: Ambulatory Information source: Patient Notes: Patient presents complaining of exertional chest pain with shortness of breath. Patient denies any cough or cold symptoms. Patient denies any nausea or vomiting. Patient does complain of headache pain as well and right shoulder pain. Patient has a history of asthma, diabetes and depression. I have greeted and performed a rapid initial assessment of this patient. A comprehensive ED assessment and evaluation of the patient, analysis of test results and completion of the medical decision making process will be conducted by additional ED providers. TRAVEL OUTSIDE OF THE [place] IN LAST 30 DAYS: No - Related Data Allergies/Adverse Reactions: ibuprofen Allergy (Verified 12/02/19 17:12) morphine Allergy (Verified 12/02/19 17:12) Penicillins Allergy (Verified 12/02/19 17:12) Past Medical History - Past Medical History Cardiac Medical History: Reports: Hx Congestive Heart Failure, Hx Hypercholesterolemia, Hx Hypertension Pulmonary Medical History: Reports: Hx Asthma Endocrine Medical History: Reports: Hx Diabetes Mellitus Type 2 Renal/ Medical History: Reports: Hx Kidney Stones. Denies: Hx Peritoneal Dialysis GI Medical History: Reports: Hx Gastroesophageal Reflux Disease Musculoskeltal Medical History: Reports Hx Arthritis - Chronic back pain Psychiatric Medical History: Reports: Hx Anxiety, Hx Depression Past Surgical History: Reports: Hx Cholecystectomy, Hx Gynecologic Surgery - Ovarian cyst, Hx Hysterectomy, Hx Inguinal Hernia, Hx Orthopedic Surgery - l knee/r hand, Other - Ventral hernia - Immunizations Immunizations up to date: Yes Hx Diphtheria, Pertussis, Tetanus Vaccination: Yes Physical Exam - Respiratory Respiratory status: No respiratory distress Chest status: Tender Breath sounds: Normal - Cardiovascular Rhythm: Regular Heart sounds: S1 appreciated, S2 appreciated Doctor's Discharge - Discharge Referrals: SOLITARIO RUSH MD [Primary Care Provider] - Follow up as needed
[2020-03-10 15:45] LABS: ABSOLUTE EOSINOPHILS # (AUTO) 0.1 10^3/uL (0.0-0.6); ABSOLUTE LYMPHOCYTES (AUTO) 1.6 10^3/uL (0.5-4.7); ABSOLUTE MONOCYTES (AUTO) 0.4 10^3/uL (0.1-1.4); ABSOLUTE NEUT (AUTO) 2.1 10^3/uL (1.7-8.2); BASOPHILS % (AUTO) 0.6 % (0-2); EOSINOPHILS % (AUTO) 2.7 % (0-6); HEMATOCRIT 39.6 % (36.0-47.0); HEMOGLOBIN 13.3 g/dL (12.0-15.5); LYMPHOCYTES % (AUTO) 38.2 % (13-45); MEAN CORPUSCULAR HEMOGLOBIN 30.7 pg (27.0-33.4); MEAN CORPUSCULAR HGB CONC 33.5 g/dL (32.0-36.0); MEAN CORPUSCULAR VOLUME 92 fl (80-97); MONOCYTES % (AUTO) 9.7 % (3-13); PLATELET COUNT 198 10^3/uL (150-450); RED BLOOD COUNT 4.32 10^6/uL (3.72-5.28); RED CELL DISTRIBUTION WIDTH 13.6 % (11.5-14.0); SEGMENTED NEUTROPHILS % (AUTO) 48.8 % (42-78); TOTAL CELLS COUNTED % (AUTO) 100 %; WHITE BLOOD COUNT 4.3 10^3/uL (4.0-10.5)
--- NOTE | 2020-03-10 15:58 | RADIOLOGY REPORT (SQ) ---
EXAM DESCRIPTION: CHEST SINGLE VIEW IMAGES COMPLETED DATE/TIME: 03/10/2020 3:40 pm REASON FOR STUDY: cp, sob COMPARISON: AP chest 12/02/2019 EXAM PARAMETERS: NUMBER OF VIEWS: One view. TECHNIQUE: Single frontal radiographic view of the chest acquired. RADIATION DOSE: NA LIMITATIONS: Portable film, obese patient FINDINGS: LUNGS AND PLEURA: No opacities, masses or pneumothorax. No pleural effusion. MEDIASTINUM AND HILAR STRUCTURES: No masses. Contour normal. HEART AND VASCULAR STRUCTURES: Heart normal in size. Normal vasculature. BONES: No acute findings. HARDWARE: None in the chest. OTHER: No other significant finding. IMPRESSION: NO ACUTE RADIOGRAPHIC FINDING IN THE CHEST. TECHNICAL DOCUMENTATION: JOB ID: [id number] 2010 [email or web address]- All Rights Reserved Reading location - IP/workstation name: [email or web address]
[2020-03-10 16:01] LABS: ALBUMIN 4.2 g/dL (3.5-5.0); ALKALINE PHOSPHATASE 87 U/L (38-126); ANION GAP 9 (5-19); ASPARTATE AMINO TRANSFERASE 37 U/L (14-36); BILIRUBIN,DIRECT 0.2 mg/dL (0.0-0.4); BILIRUBIN,TOTAL 0.4 mg/dL (0.2-1.3); BLOOD UREA NITROGEN 14 mg/dL (7-20); CALCIUM 9.8 mg/dL (8.4-10.2); CARBON DIOXIDE 33 mmol/L (22-30); CHLORIDE 104 mmol/L (98-107); GLUCOSE 174 mg/dL (75-110); POTASSIUM 4.2 mmol/L (3.6-5.0); TOTAL PROTEIN 6.8 g/dL (6.3-8.2)
--- NOTE | 2020-03-10 16:01 | RADIOLOGY REPORT (SQ) ---
EXAM DESCRIPTION: SHOULDER RIGHT 2 OR MORE VIEWS IMAGES COMPLETED DATE/TIME: 03/10/2020 3:40 pm REASON FOR STUDY: r shoulder pain COMPARISON: None. NUMBER OF VIEWS: Three views. TECHNIQUE: Internal rotation, external rotation, and Y view images acquired of the right shoulder. LIMITATIONS: None. FINDINGS: MINERALIZATION: Age-appropriate osteopenia BONES: Mild bony spurring at the acromioclavicular joint and glenohumeral joints. No fracture. No l ytic or blastic lesions JOINTS: No glenohumeral malalignment. No AC joint widening VISUALIZED LUNGS AND RIBS: No pneumothorax. No rib fracture. SOFT TISSUES: No radiopaque foreign body. OTHER: No other significant finding. IMPRESSION: Mild joint space narrowing and bony spurring along the AC joint and glenohumeral joint. No acute fracture or malalignment TECHNICAL DOCUMENTATION: JOB ID: [id number] 2010 [employer]- All Rights Reserved Reading location - IP/workstation name: [email or web address]
[2020-03-10 16:12] LABS: NT PRO BNP 96 pg/mL (<125)
[2020-03-10 16:15] LABS: TROPONIN I < 0.012 ng/mL
[2020-03-10] MEDS ORDERED: IPRATROPIUM/ALBUTEROL 0.5-2.5 MG/3 ML AMPUL NEB ONE ×2 (18:26→19:31)
--- NOTE | 2020-03-10 18:29 | ER Document Report ---
ED Cardiac - General Mode of Arrival: Ambulatory TRAVEL OUTSIDE OF THE [place] IN LAST 30 DAYS: No <NEWTON LING - Last Filed: 03/10/20 20:16> <SUNIL BEASLEY - Last Filed: 03/10/20 21:46> - General Chief Complaint: Chest Pain > 30 Stated Complaint: CHEST PAIN Time Seen by Provider: 03/10/20 14:58 Primary Care Provider: SOLITARIO RUSH MD [Primary Care Provider] - Follow up as needed Notes: Patient is a 64-year-old female with a history of [place], hypertension, diabetes who presents emergency department with a chief complaint of chest pain. Patient reports over the past 3 days she is noticed some chest tightness as well as s hortness of breath. The shortness of breath is worse when she walks. Patient reports it is difficult to lay on her back as this causes the shortness of breath to worsen. Patient states that she does have a history of asthma as well and has been wheezing a lot throughout the night. Has been using her albuterol inhaler more frequently. States that the albuterol inhaler is not helping. Patient reports she does live alone and has not been around anybody who was exposed to COVID. Denies fever. Denies cough. (NEWTON LING) - Related Data Allergies/Adverse Reactions: ibuprofen Allergy (Verified 03/10/20 15:07) morphine Allergy (Verified 03/10/20 15:07) Penicillins Allergy (Verified 03/10/20 15:07) Past Medical History - General Information source: Patient - Social History Smoking Status: Never Smoker Chew tobacco use (# tins/day): No Frequency of alcohol use: None Drug Abuse: None Lives with: Family Family History: Reviewed & Not Pertinent Patient has homicidal ideation: No - Past Medical History Cardiac Medical History: Reports: Hx Congestive Heart Failure, Hx Hypercholesterolemia, Hx Hypertension Pulmonary Medical History: Reports: Hx Asthma EENT Medical History: Reports: None Neurological Medical History: Reports: None Endocrine Medical History: Reports: Hx Diabetes Mellitus Type 2 Renal/ Medical History: Reports: Hx Kidney Stones. Denies: Hx Peritoneal Dialysis Malignancy Medical History: Reports: None GI Medical History: Reports: Hx Gastroesophageal Reflux Disease Musculoskeletal Medical History: Reports Hx Arthritis - Chronic back pain Skin Medical History: Reports None Psychiatric Medical History: Reports: Hx Anxiety, Hx Depression Traumatic Medical History: Reports: None Infectious Medical History: Reports: None Past Surgical History: Reports: Hx Cholecystectomy, Hx Gynecologic Surgery - Ovarian cyst, Hx Hysterectomy, Hx Inguinal Hernia, Hx Orthopedic Surgery - l knee/r hand, Other - Ventral hernia - Immunizations Immunizations up to date: Yes Hx Diphtheria, Pertussis, Tetanus Vaccination: Yes <NEWTON LING - Last Filed: 03/10/20 20:16> Review of Systems - Review of Systems Constitutional: No symptoms reported EENT: No symptoms reported Cardiovascular: See HPI Respiratory: See HPI Gastrointestinal: No symptoms reported Genitourinary: No symptoms reported Female Genitourinary: No symptoms reported Musculoskeletal: No symptoms reported Skin: No symptoms reported Hematologic/Lymphatic: No symptoms reported Neurological/Psychological: No symptoms reported <NEWTON LING - Last Filed: 03/10/20 20:16> Physical Exam - Vital signs Interpretation: Hypertensive <NEWTON LING - Last Filed: 03/10/20 20:16> - Vital signs Vitals: Temp Pulse Resp BP Pulse Ox 98.0 F 85 20 149/81 H 96 03/10/20 15:28 03/10/20 15:28 03/10/20 15:28 03/10/20 15:28 03/10/20 15:28 - Notes Notes: GENERAL: Well-appearing, well-nourished and in no acute distress. HEAD: Atraumatic, normocephalic. EYES: Pupils equal round and reactive to light, extraocular movements intact, sclera anicteric, conjunctiva are normal. ENT: Nares patent, oropharynx clear without exudates. Moist mucous membranes. NECK: Normal range of motion, supple without lymphadenopathy or JVD. LUNGS: Some expiratory wheeze noted in the right lower and upper lobes. Patient's breathing is not labored. No cough is present. HEART: Regular rate and rhythm without murmurs, rubs or gallops. Patient has diffuse tenderness with palpation to the chest wall. ABDOMEN: Soft, obese, nontender, normoactive bowel sounds. No guarding, no rebound. No masses appreciated. BACK: No cervical, thoracic, lumbar midline tenderness. No saddle anesthesia, normal distal neurovascular exam. GENITOURINARY: Deferred. EXTREMITIES: Normal range of motion, nonpitting edema noted to bilateral lower extremities. No clubbing or cyanosis. Patient has tenderness to the right anterior, lateral and posterior shoulder. There is no deformity. Patient reports pain with abduction, abduction, internal and external rotation. Patient reports any type of movement to the shoulder radiates down her right mid back. Patient did had tenderness to the right upper and mid back over the musculature. There is no cervical, thoracic or lumbar midline tenderness with palpation. NEUROLOGICAL: Cranial nerves II through XII grossly intact. Normal speech PSYCH: Normal mood, normal affect. SKIN: Warm, Dry, normal turgor, no rashes or lesions noted. (NEWTON LING) Course - Laboratory Result Diagrams: 03/10/20 15:20 03/10/20 15:20 - Diagnostic Test Radiology reviewed: Reports reviewed <NEWTON LING - Last Filed: 03/10/20 20:16> - Laboratory Result Diagrams: 03/10/20 15:20 03/10/20 15:20 <SUNIL BEASLEY - Last Filed: 03/10/20 21:46> - Re-evaluation Re-evalutation: 03/10/20 19:19 Patient states she feels slightly better after receiving her breathing treatment but still has the chest wall discomfort. Second troponin as well as a BNP is being drawn at this time. Heart score; 3. 03/10/20 20:07 Lungs are clear. Patient BNP and second troponin is pending. I did inform the patient that she did have some abnormalities with her right shoulder x-ray and she does need to follow-up with orthopedics for further management as this appears to be a chronic issue. Patient also reports having right upper and mid back pain. Patient reports that this is been present since April 2019 when she fell. 03/10/20 20:16 BNP normal. (NEWTON LING) 03/10/20 21:45 Repeat troponin negative. I did discuss with patient. Patient describes to me that all her pain is in her right shoulder mainly in the back of her shoulder, she has pain with lifting her shoulder/arm, pain with almost any movement of her right shoulder/arm. She states she is glad about her work-up, she states she understands she needs to follow-up with orthopedics in regards to her shoulder for additional imaging and management. She is requesting a sling for her shoulder/arm to wear intermittently, discussed precautions in regards to this as well. Patient states she has no other questions and she is ready to leave. Based on her overall work-up and her very specific complaints and exam it is more strongly felt this is musculoskeletal, I did discuss return precautions, patient states appreciation and agreement. Stable and well-appearing at time of discharge. (SUNIL BEASLEY) - Vital Signs Vital signs: Temp Pulse Resp BP Pulse Ox 98.0 F 85 20 149/81 H 96 03/10/20 15:28 03/10/20 15:28 03/10/20 15:28 03/10/20 15:28 03/10/20 18:26 - Laboratory Laboratory results interpreted by me: 03/10/20 15: Sodium 145.5 H Carbon Dioxide 33 H Glucose 174 H AST 37 H ALT 36 H - Diagnostic Test Radiology results interpreted by me: 03/10/20 18:39 Chest X-Ray 03/10/20 15:03 IMPRESSION: NO ACUTE RADIOGRAPHIC FINDING IN THE CHEST. Shoulder X-Ray 03/10/20 15:05 IMPRESSION: Mild joint space narrowing and bony spurring along the AC joint and glenohumeral joint. No acute fracture or malalignment (NEWTON LING) - EKG Interpretation by Me Additional EKG results interpreted by me: 03/10/20 18:38 Patient EKG shows a sinus rhythm with a heart rate of 82. Patient's RI interval is 172, QT is 316 QTc is 421. Patient has a normal axis deviation. There is not appear to be any ST segment changes in consecutive leads. Does not appear to be any significant change from previous EKG. (NEWTON LING) Discharge <NEWTON LING - Last Filed: 03/10/20 20:16> <SUNIL BEASLEY - Last Filed: 03/10/20 21:46> - Discharge Clinical Impression: Chest wall pain Right shoulder pain Qualifiers: Chronicity: acute Qualified Code(s): M25.511 - Pain in right shoulder Condition: Stable Disposition: HOME, SELF-CARE Additional Instructions: *Today using in the emergency department for chest pain. Your cardiac enzymes were negative. Your physical examination was reassuring and this appears to be more musculoskeletal in nature. Your right shoulder x-ray did show some AC joint widening. Since this is chronic I would recommend following up with orthopedics. I will refer [facility] to [facility] for surgery. Please follow-up with your primary care physician. Please continue to use your albuterol inhaler as needed for wheezing. Please return to the emergency department if your symptoms worsen or change. CHEST PAIN OF UNCLEAR CAUSE: The exact cause of your chest pain isn't clear. Fortunately, there is no evidence of a dangerous medical condition. Further testing may be required to find the source of the pain. Most often, we find that this pain is coming from the chest wall -- the muscles or rib joints in the chest. But chest pain can come from the lung and lung lining, the esophagus, the heart valves or heart lining, and even the stomach or gallbladder. Rest. Eat lightly until the pain is gone. We may prescribe medicine for pain and inflammation. You should call the physician immediately if the pain radiates to the shoulder, jaw or arms; if you start to run a fever or develop a cough; or if you develop shortness of breath, or other new or alarming symptoms. NORMAL EXAM AND WORKUP: At this time, your examination and workup show no significant abnormality. No significant abnormal physical findings were noted. All laboratory, EKG, and imaging (x-ray, CT scans, ultrasound) studies that were ordered show no significant abnormality. Although your examination and all studies that were ordered showed no significant abnormal finding, there are no examinations and no studies that are 100% accurate. There is always the possibility that some abnormality could exist and not be detected with physical examination or within the limits and capabilities of laboratory and other studies. You should return or follow up as you were instructed on your visit today for further evaluation if your symptoms do not resolve. CHEST WALL PAIN: Your chest pain may be coming from the chest wall. This is often caused by straining the muscles or joints in the chest during physical activity, direct trauma, coughing, or vigorous vomiting. Persons with arthritis are especially prone to this type of pain, due to inflammation of the cartilage joints near the breast bone. Occasionally, no cause can be found. Rest from strenuous physical activity. This kind of chest pain is usually made worse by movement of the chest. Depending on the symptoms, we may prescribe medicine for pain, muscle relaxation, and antiinflammatory effects. If the pain is new, and seems to be due to muscle strain, cold packs can help. Otherwise, apply gentle warmth to the painful area for 15 minutes every hour or two. You should call contact the doctor immediately if things change. Further evaluation is needed if you develop a fever or cough, if the nature of the pain changes, or if you become short of breath. FOLLOW-UP CARE: If you have been referred to a physician for follow-up care, call the physicians office for an appointment as you were instructed or within the next two days. If you experience worsening or a significant change in your symptoms, notify the physician immediately or return to the Emergency Department at any time for re-evaluation. Referrals: SOLITARIO RUSH MD [Primary Care Provider] - Follow up as needed
[2020-03-10] MEDS ORDERED: KETOROLAC TROMETHAMINE INJ/PF 30 MG/1 ML SDV IV ONE (20:08)
[2020-03-10] MEDS ORDERED: KETOROLAC TROMETHAMINE 60 MG/2 ML SDV IM ONE (20:27)
[2020-03-10] MEDS ORDERED: OXYCODONE HCL IR 5 MG TABLET PO ONE (21:44)
[2020-03-10 22:22] VITALS: BP 128/59
--- NOTE | 2020-03-11 00:48 | EKG REPORT ---
SEVERITY:- NORMAL ECG - SINUS RHYTHM : Confirmed by: Alisha Fernandez MD 11-Mar-2020 00:47:45
== END 2020-03-10 22:27 | disposition home or self-care (01) ==
LOC: ER 14:49
DX: R07.89 Other chest pain (principal); M25.511 Pain in right shoulder; I11.0 Hypertensive heart disease with heart failure; E11.9 Type 2 diabetes mellitus without complications; I50.9 Heart failure, unspecified; Z88.6 Allergy status to analgesic agent; Z88.0 Allergy status to penicillin; Z87.442 Personal history of urinary calculi; Z60.2 Problems related to living alone; I25.2 Old myocardial infarction
CPT/HCPCS: 93005; 94640; 99285; 96372; 36415; 85025; 80053; 84484; 83880; 71045; 73030; 93010; J1885; J3490

== ENCOUNTER 2020-05-14 21:15 | Emergency (ER) | payer MEDICAID ==
[2020-05-14 23:07] LABS: ALBUMIN 3.4 g/dL (3.5-5.0); ALKALINE PHOSPHATASE 76 U/L (38-126); ANION GAP 6 (5-19); ASPARTATE AMINO TRANSFERASE 28 U/L (14-36); BILIRUBIN,DIRECT 0.1 mg/dL (0.0-0.4); BILIRUBIN,TOTAL 0.3 mg/dL (0.2-1.3); BLOOD UREA NITROGEN 25 mg/dL (7-20); CALCIUM 8.8 mg/dL (8.4-10.2); CARBON DIOXIDE 28 mmol/L (22-30); CHLORIDE 103 mmol/L (98-107); CREATINE KINASE 402 U/L (30-135); GLUCOSE 167 mg/dL (75-110); POTASSIUM 3.7 mmol/L (3.6-5.0); TOTAL PROTEIN 5.9 g/dL (6.3-8.2)
[2020-05-14 23:19] LABS: ABSOLUTE EOSINOPHILS # (AUTO) 0.1 10^3/uL (0.0-0.6); ABSOLUTE LYMPHOCYTES (AUTO) 1.9 10^3/uL (0.5-4.7); ABSOLUTE MONOCYTES (AUTO) 0.5 10^3/uL (0.1-1.4); ABSOLUTE NEUT (AUTO) 2.1 10^3/uL (1.7-8.2); BASOPHILS % (AUTO) 0.4 % (0-2); CREATINE KINASE MB 2.01 ng/mL (<4.55); EOSINOPHILS % (AUTO) 2.1 % (0-6); HEMATOCRIT 33.6 % (36.0-47.0); HEMOGLOBIN 11.4 g/dL (12.0-15.5); LYMPHOCYTES % (AUTO) 41.8 % (13-45); MEAN CORPUSCULAR HEMOGLOBIN 31.3 pg (27.0-33.4); MEAN CORPUSCULAR VOLUME 92 fl (80-97); MONOCYTES % (AUTO) 11.1 % (3-13); PLATELET COUNT 168 10^3/uL (150-450); RED BLOOD COUNT 3.65 10^6/uL (3.72-5.28); RED CELL DISTRIBUTION WIDTH 13.4 % (11.5-14.0); SEGMENTED NEUTROPHILS % (AUTO) 44.6 % (42-78); TOTAL CELLS COUNTED % (AUTO) 100 %; WHITE BLOOD COUNT 4.7 10^3/uL (4.0-10.5)
[2020-05-14 23:22] LABS: TROPONIN I < 0.012 ng/mL
--- NOTE | 2020-05-14 23:31 | RADIOLOGY REPORT (SQ) ---
CLINICAL HISTORY: chest pain COMPARISON: 03/10/2020. TECHNIQUE: XR CHEST 2 VIEWS 05/14/2020 12:00 AM [employer] FINDINGS: Cardiac silhouette is normal in size. Lungs are clear without consolidation, atelectasis, mass or edema. There is no pleural effusion. There is no pneumothorax. There are no acute osseous findings. IMPRESSION: Clear lungs.
--- NOTE | 2020-05-15 00:18 | EKG REPORT ---
SEVERITY:- ABNORMAL ECG - SINUS RHYTHM LEFT VENTRICULAR HYPERTROPHY : Confirmed by: Lynsey Toro 15-May-2020 00:17:03
[2020-05-15] MEDS ORDERED: FENTANYL CITRATE INJ/PF 100 MCG/2 ML AMPUL IV ONE (00:25)
--- NOTE | 2020-05-15 00:25 | ER Document Report ---
ED General - General Chief Complaint: Chest Pain Stated Complaint: CHEST PAIN Time Seen by Provider: 05/15/20 00:09 Primary Care Provider: KAMRYN RAMOS MD [ACTIVE STAFF] - Follow up tomorrow Notes: Patient is a 64-year-old female who comes emergency department for chief complaint of chest pain. Patient states that she was cleaning the house when she started having pain in the center of her chest that radiated to her left shoulder, left side of her back, and left arm. She states the pain has been present since then and is occasionally sharp. She states that she coughs a lot at night, she has a history of asthma however she denies wheezing or shortness of breath. She denies fever/chills. She denies injury. She states that she has been having these symptoms intermittently for a while and she has a follow- up with cardiology in a few days (Dr. Ramos) for a stress test. Past medical history of hypertension, hyperlipidemia, asthma, type 2 diabetes, chronic back pain (on Percocet and Gabapentin). TRAVEL OUTSIDE OF THE [place] IN LAST 30 DAYS: No - Related Data Allergies/Adverse Reactions: ibuprofen Allergy (Verified 03/10/20 15:07) morphine Allergy (Verified 03/10/20 15:07) Penicillins Allergy (Verified 03/10/20 15:07) Home Medications: Gabapentin. oxycodone. pramipexole. losartan potassium. tizanidine. proair inhaler. pazeo. famatodine. clonazepam Past Medical History - General Information source: Patient - Social History Smoking Status: Never Smoker Chew tobacco use (# tins/day): No Drug Abuse: None Lives with: Family - But on side Family History: Reviewed & Not Pertinent - Past Medical History Cardiac Medical History: Reports: Hx Congestive Heart Failure, Hx Hypercholesterolemia, Hx Hypertension Pulmonary Medical History: Reports: Hx Asthma Endocrine Medical History: Reports: Hx Diabetes Mellitus Type 2 Renal/ Medical History: Reports: Hx Kidney Stones. Denies: Hx Peritoneal Dialysis GI Medical History: Reports: Hx Gastroesophageal Reflux Disease Musculoskeletal Medical History: Reports Hx Arthritis - Chronic back pain Psychiatric Medical History: Reports: Hx Anxiety, Hx Depression Past Surgical History: Reports: Hx Cholecystectomy, Hx Gynecologic Surgery - Ovarian cyst, Hx Hysterectomy, Hx Inguinal Hernia, Hx Orthopedic Surgery - l knee/r hand, Other - Ventral hernia - Immunizations Immunizations up to date: Yes Hx Diphtheria, Pertussis, Tetanus Vaccination: Yes Review of Systems - Review of Systems Constitutional: No symptoms reported EENT: No symptoms reported Cardiovascular: See HPI Respiratory: See HPI Gastrointestinal: No symptoms reported Genitourinary: No symptoms reported Female Genitourinary: See HPI Musculoskeletal: No symptoms reported Skin: No symptoms reported Hematologic/Lymphatic: No symptoms reported Neurological/Psychological: No symptoms reported Physical Exam - Vital signs Vitals: Resp Pulse Ox 15 94 05/14/20 21:42 05/14/20 21:42 - Notes Notes: GENERAL: Alert, interacts well. No acute distress. HEAD: Normocephalic, atraumatic. EYES: Pupils equal, round, and reactive to light. Extraocular movements intact. ENT: Oral mucosa moist, tongue midline. Oropharynx unremarkable. Airway patent. NECK: Full range of motion. Supple. Trachea midline. No lymphadenopathy. LUNGS: Clear to auscultation bilaterally, no wheezes, rales, or rhonchi. No respiratory distress. Specific and reproducible upper to mid chest wall tenderness mainly on the left side. No crepitus, erythema, signs of trauma, or severe tenderness. HEART: Regular rate and rhythm. No murmur ABDOMEN: Soft, non-tender. Non-distended. Bowel sounds present in all 4 quadrants. GENITOURINARY: Deferred EXTREMITIES: Moves all 4 extremities spontaneously. No edema, normal radial and dorsalis pedis pulses bilaterally. No cyanosis. BACK: no cervical, thoracic, lumbar midline tenderness. No saddle anesthesia, normal distal neurovascular exam. Moves all extremities in full range of motion. NEUROLOGICAL: Alert and oriented x3. Normal speech. Cranial nerves II through XII grossly intact. Strength 5/5 in all extremities. PSYCH: Normal affect, normal mood. SKIN: Warm, dry, normal turgor. No rashes or lesions noted. Course - Re-evaluation Re-evalutation: Patient with very reproducible pain along the chest wall with palpation and with movement. She does have cardiac risk factors including obesity, hypertension, hyperlipidemia, and diabetes, however she already has a very close follow-up stress test already scheduled with Dr. Ramos. CBC unremarkable, chemistry unremarkable, troponin negative, cycled and again negative. Chest x-ray unremarkable. EKG nonischemic. Low suspicion of acute ACS based on her presentation, because she already has this scheduled she will follow close with her manager stars after we discussed options in details. Patient and daughter state they would prefer discharge and to keep their close appointment. I discussed expectations and return precautions. Patient and daughter state appreciation, understanding, and agreement. - Vital Signs Vital signs: Temp Pulse Resp BP Pulse Ox 98.0 F 15 113/80 94 05/15/20 03:31 05/15/20 03:01 05/15/20 03:00 05/15/20 03:01 - Laboratory Results Result Diagrams: 05/14/20 21:40 05/14/20 21:40 Laboratory Results Interpreted: 05/14/20 05/14/20 21:40 21:40 RBC 3.65 L Hgb 11.4 L Hct 33.6 L BUN 25 H Glucose 167 H Creatine Kinase 402 H Total Protein 5.9 L Albumin 3.4 L Critical Laboratory Results Reviewed: No Critical Results - Radiology Results Critical Radiology Results Reviewed: No Critical Results - EKG Interpretation by Me Additional EKG results interpreted by me: EKG shows sinus rhythm at a rate of 71, QTc 439, left axis deviation with left ventricular hypertrophy. No T wave inversions or ST segment changes in consecutive leads Discharge - Discharge Clinical Impression: Chest wall pain Chest pain Qualifiers: Chest pain type: unspecified Qualified Code(s): R07.9 - Chest pain, unspecified Condition: Stable Disposition: HOME, SELF-CARE Additional Instructions: Based on your tests and your exam your pain appears to be coming from your chest wall as we discussed. I recommend the muscle relaxer as prescribed, heat to the area, rest. You can continue your pain medications. Please follow-up closely with your manager stars for your stress test as scheduled. Return if you worsen including severe worsening pain, difficulty breathing, fever, vomiting, or any other concerning symptoms. Prescriptions: Methocarbamol [Robaxin-750] 750 mg PO QID PRN #20 tablet PRN Reason: Referrals: KAMRYN RAMOS MD [ACTIVE STAFF] - Follow up tomorrow
[2020-05-15 03:18] VITALS: BP 113/80
== END 2020-05-15 03:31 | disposition home or self-care (01) ==
LOC: ER 21:15
DX: R07.89 Other chest pain (principal); J45.909 Unspecified asthma, uncomplicated; R05 Cough; E11.9 Type 2 diabetes mellitus without complications; I11.0 Hypertensive heart disease with heart failure; I50.9 Heart failure, unspecified; E66.9 Obesity, unspecified; E78.5 Hyperlipidemia, unspecified; K21.9 Gastro-esophageal reflux disease without esophagitis; F41.9 Anxiety disorder, unspecified; M54.9 Dorsalgia, unspecified; G89.29 Other chronic pain; Z79.891 Long term (current) use of opiate analgesic; Z79.899 Other long term (current) drug therapy
CPT/HCPCS: 93005; 99285; 96374; 36415; 82553; 82550; 85025; 80053; 84484; 71046; 93010; J3010